=== PATIENT | male | born 2000 | race Caucasian/White ===

== ENCOUNTER 2018-04-11 19:59 | Inpatient (IN) ==
[2018-04-11] MEDS ORDERED: Acetaminophen 325 MG Tablet PO ONE (21:08)
[2018-04-11] MEDS ORDERED: Sod Chloride 0.9% Inj 1,000 ML IV.SIG ONE ×2 (21:08→22:18)
--- NOTE | 2018-04-11 21:21 | ED ---
HPI General Chief complaint: Fever Stated complaint: flu symp Time Seen by Provider: 04/11/18 20:29 Source: patient Limitations: no limitations History of Present Illness HPI narrative: The patient is a 17 year old male who presents to the [facility] emergency department with a history of reportedly not feeling well since 10 PM last night. He reports that it began with nausea, mild bitemporal headache, and a sore throat. He denies having any chest congestion or cough associated with this, however he has had mild head congestion. He reports that he took DayQuil last at 5 PM today. He denies having any known sick contacts. He reports having a subjective fever that began earlier today. The patient arrives with a temperature of 102. The patient denies having any vomiting or diarrhea. The patient does report having a history of spherocytosis status post cholecystectomy. The patient reports that he does take folic acid daily related to this. He reports that incidentally since last night he has had decreased urine output and darkening of his urine with a burning with urination. He denies having any testicle pain, swelling, or penile discharge. On review of systems otherwise, the patient denies having any, neck pain or stiffness, chest pain, shortness of breath, abdominal pain, or neurologic symptoms. Related Data Home Medications Medication Instructions Recorded Confirmed folic acid 1 mg PO DAILY 04/11/18 04/11/18 Allergies Allergy/AdvReac Type Severity Reaction Status Date / Time No Known Allergies Allergy Unverified 04/11/18 20:06 Review of Systems ROS: all other systems reviewed are negative (Except for that which was mentioned in the HPI.) [facility] Medical History Medical History Jaundice (Acute) Spherocytosis (Acute) Spleen enlarged (Acute) Surgical History Surgical History Hx of cholecystectomy (Acute) Hx of tonsillectomy (Acute) Social History Social History Substance History: No History of Abuse Second Hand Smoke Exposure: No Smoking Status: Never smoker How Often Do You Have a Drink Containing Alcohol: Monthly or less Immunization History Tetanus Immunization: <5 Years Hx Influenza Vaccine This Season: Unable to Assess Exam Const General: cooperative, no acute distress and well developed Nutritional Appearance: well nourished Orientation: alert, awake and oriented x3 [facility] Head: normocephalic and atraumatic Nose: no nasal discharge and no epistaxis Mouth: moist mucous membranes Throat: posterior oropharynx abnormal (Posterior oropharynx is erythematous without tonsillar hypertrophy. No visible exudates. Throat swab was done.) and uvula midline Eyes Sclera: normal sclerae Pupils: PERRL Neck Neck: no meningeal signs, trachea midline and no JVD Resp Effort & Inspection: no use of accessory muscles Auscultation: clear to auscultation bilaterally Cardio Rate: tachycardic (Sinus tachycardia in the low 100s, no pulse deficits to the extremities on simultaneous auscultation and palpation of his radial artery.) Rhythm: regular rhythm Heart Sounds: no gallops, no murmurs and no rubs GI Inspection: non-distended Palpation: soft, no hepatosplenomegaly and nontender Auscultation: normal bowel sounds Back/Spine/Pelvis Back: no CVA tenderness Skin General: dry skin (warm) Neuro General: alert, awake and oriented x3 Cranial Nerves: other (No facial asymmetry.) Speech: speech normal Motor: no movement abnormalities noted Extrem General: normal to inspection (2+ pulses in all 4 extremities. No calf tenderness on palpation.), no clubbing, no cyanosis and no edema Psych Mood: congruent mood Affect: normal affect Judgment: judgment good Course Reevaluation(s) Reevaluation #1: The patient on reevaluation was reportedly feeling improved after IV fluids and Tylenol administration. Consultations Consultation #1: The patient's case including history, pertinent physical examination findings, and laboratory studies were discussed with Dr. Holder. It was agreed that the patient would be admitted to the hospitalist service. Initial Documented Vital Signs Temperature 102.7 F H 04/11/18 20:06 Pulse Rate 100 H 04/11/18 20:06 Respiratory Rate 20 04/11/18 20:06 Blood Pressure 123/56 L 04/11/18 20:06 Pulse Oximetry 100 04/11/18 20:06 Last Documented Vital Signs Temperature 97.4 F L 04/14/18 04:00 Pulse Rate 78 04/14/18 04:00 Respiratory Rate 18 04/14/18 04:00 Blood Pressure 113/59 L 04/14/18 04:00 Pulse Oximetry 100 04/14/18 04:00 Medical Decision Making MDM Narrative Medical decision making narrative: During the course of the patient's emergency department visit, the patient's history, examination, and differential diagnosis were reviewed with the patient. The patient was placed on a gambling monitor with oximetry and frequent blood pressure monitoring. The patient had IV access obtained and blood work sent for analysis. Diagnostic evaluation was started regarding the patient's reported fever, nausea, bitemporal headache, sore throat. The patient was initially provided normal saline 1 L IV fluid bolus. The patient was given Tylenol for fever. The patient's temperature again went up and the patient was given ibuprofen 400 mg p.o. 1. The patient was given a second liter of normal saline at all he was being worked up. The patient's diagnostic evaluation is remarkable for a white count of 21, platelets 212, neutrophil predominance at 82.9, hemoglobin is 9.4. Had a further discussion with the patient and the patient reports that his hemoglobin is normally 12-13. He reports that this is consistent with a hemolytic event. He reports that he is normally admitted for these for monitoring of his CBC for the coming aplastic. The rest of his evaluation is consistent with a hemolytic event, chemistry is remarkable for a total bilirubin of 11.4, lipase is 53, GFR of 63, creatinine 1.44, BUN 25, AST is 321, ALT is 96, urinalysis shows moderate occult blood with 3 RBCs, many mucus, hazy clarity, otherwise unremarkable. A mono screen has been added to his workup. A chest x-ray shows no acute cardiopulmonary process. The patient will be admitted to the hospital for an exacerbation of his spherocytosis with hemolytic process associated with febrile illness. The patient's results were discussed with the patient, including the plan of care. I explained that further testing and/ or monitoring is indicated based on the patient's history, examination, and/ or laboratory findings. Therefore, I recommended admission for additional evaluation. The patient expressed understanding and was agreeable with this plan. The patient was admitted to the hospital in guarded condition and sent to a bed under the care of [facility] service. Medical Screen Exam Complete: Yes Emergency Medical Condition: Yes Differential Diagnosis Differential Diagnosis: Strep pharyngitis, versus viral syndrome, versus pneumonia Lab Data Result diagrams: 04/14/18 03:17 04/14/18 03:17 Lab Results 04/11/18 04/11/18 04/11/18 Range/Units 21:15 21:15 21:15 WBC 21.0 H (4.0-11.0) th/mm3 Corrected WBC RBC 2.93 L (4.50-5.90) mil/mm3 Hgb 9.4 L (13.0-17.0) gm/dL Hct 26.3 L (39.0-51.0) % MCV 89.9 (80.0-100.0) fL MCH 32.0 (27.0-34.0) pg MCHC 35.6 (32.0-36.0) % RDW 21.2 H (11.6-17.2) % Plt Count 212 (150-450) th/mm3 MPV 8.3 (7.0-11.0) fL Prelim Diff (Auto) Slide review pending Neut % (Auto) 82.9 H (16.0-70.0) % Lymph % (Auto) 5.6 L (9.0-44.0) % [place] % (Auto) 11.2 H (0.0-8.0) % Eos % (Auto) 0.1 (0.0-4.0) % Baso % (Auto) 0.2 (0.0-2.0) % Neut # (Auto) 17.4 H (1.8-7.7) th/mm3 Lymph # (Auto) 1.2 (1.0-4.8) th/mm3 [place] # (Auto) 2.4 H (0.0-0.9) th/mm3 Eos # (Auto) 0.0 (0.0-0.4) th/mm3 Baso # (Auto) 0.0 (0.0-0.2) th/mm3 WBC Differential . Diff Scan Auto diff confirmed Differential Comment . Retic Count (0.4-3.0) % Absolute Retic (20.0-150.0) mil/L Haptoglobin (30-200) mg/dL Hematology Comments PT 12.6 H (9.8-11.6) sec INR 1.2 Ratio APTT 27.9 (24.3-30.1) sec Sodium 140 (136-145) meq/L Potassium 3.5 (3.5-5.1) meq/L Chloride 103 (98-107) meq/L Carbon Dioxide 23.5 (21.0-32.0) meq/L Anion Gap 14 (5-15) meq/L BUN 25 H (7-18) mg/dL Creatinine 1.44 H (0.60-1.30) mg/dL Estimated GFR 63 L (>89) mL/min Random Glucose 101 (74-106) mg/dL Lactic Acid (0.4-2.0) mmol/L Calcium 8.3 L (8.5-10.1) mg/dL Magnesium 1.9 (1.5-2.5) mg/dL Iron (65-175) mcg/dL TIBC (250-450) mcg/dL % Saturation (20-50) % Ferritin (26-388) ng/mL Total Bilirubin 11.4 H (0.2-1.0) mg/dL Direct Bilirubin (0.0-0.2) mg/dL Indirect Bilirubin (0.0-0.8) mg/dL AST 321 H (15-39) U/L ALT 96 H (9-52) U/L Alkaline Phosphatase 69 (45-117) U/L Lactate Dehydrogenase (87-241) U/L Total Creatine Kinase 7593 H (39-308) U/L CK-MB (CK-2) Less than 1.0 (0.5-3.6) ng/mL CK-MB (CK-2) % 0.0 (0.0-4.0) % Total Protein 7.2 (6.4-8.2) g/dL Albumin 4.3 (3.4-5.0) g/dL Lipase 53 L (73-393) U/L Vitamin B12 (193-986) pg/mL Urine Color (Yellw/Straw) Urine Clarity (Clear) Urine pH (5.0-8.5) Ur Specific [place] (1.002-1.035) Urine Protein (Neg-Trace) mg/dL Urine Glucose (UA) (Negative) mg/dL Urine Ketones (Negative) mg/dL Urine Occult Blood (Negative) Urine Nitrate (Negative) Urine Bilirubin (Negative) Urine Urobilinogen (Less than 2) mg/dL Ur Leukocyte Esterase (Negative) Urine RBC (0-3) /hpf Urine WBC (0-5) /hpf Hyaline Casts (0-3) /lpf Urine Mucus (Occasional) /lpf Micro UA Comment Ur Microscopic Review Urine Culture Comments Vancomycin Trough (5.0-10.0) mcg/mL Monoscreen (Neg) Direct Antiglob Test (Negative) 04/11/18 04/11/18 04/11/18 Range/Units 21:15 21:15 22:30 WBC (4.0-11.0) th/mm3 Corrected WBC RBC (4.50-5.90) mil/mm3 Hgb (13.0-17.0) gm/dL Hct (39.0-51.0) % MCV (80.0-100.0) fL MCH (27.0-34.0) pg MCHC (32.0-36.0) % RDW (11.6-17.2) % Plt Count (150-450) th/mm3 MPV (7.0-11.0) fL Prelim Diff (Auto) Neut % (Auto) (16.0-70.0) % Lymph % (Auto) (9.0-44.0) % [place] % (Auto) (0.0-8.0) % Eos % (Auto) (0.0-4.0) % Baso % (Auto) (0.0-2.0) % Neut # (Auto) (1.8-7.7) th/mm3 Lymph # (Auto) (1.0-4.8) th/mm3 [place] # (Auto) (0.0-0.9) th/mm3 Eos # (Auto) (0.0-0.4) th/mm3 Baso # (Auto) (0.0-0.2) th/mm3 WBC Differential Diff Scan Differential Comment Retic Count (0.4-3.0) % Absolute Retic (20.0-150.0) mil/L Haptoglobin (30-200) mg/dL Hematology Comments PT (9.8-11.6) sec INR Ratio APTT (24.3-30.1) sec Sodium (136-145) meq/L Potassium (3.5-5.1) meq/L Chloride (98-107) meq/L Carbon Dioxide (21.0-32.0) meq/L Anion Gap (5-15) meq/L BUN (7-18) mg/dL Creatinine (0.60-1.30) mg/dL Estimated GFR (>89) mL/min Random Glucose (74-106) mg/dL Lactic Acid 1.6 (0.4-2.0) mmol/L Calcium (8.5-10.1) mg/dL Magnesium (1.5-2.5) mg/dL Iron (65-175) mcg/dL TIBC (250-450) mcg/dL % Saturation (20-50) % Ferritin (26-388) ng/mL Total Bilirubin (0.2-1.0) mg/dL Direct Bilirubin (0.0-0.2) mg/dL Indirect Bilirubin (0.0-0.8) mg/dL AST (15-39) U/L ALT (9-52) U/L Alkaline Phosphatase (45-117) U/L Lactate Dehydrogenase (87-241) U/L Total Creatine Kinase Cancelled (39-308) U/L CK-MB (CK-2) (0.5-3.6) ng/mL CK-MB (CK-2) % (0.0-4.0) % Total Protein (6.4-8.2) g/dL Albumin (3.4-5.0) g/dL Lipase (73-393) U/L Vitamin B12 (193-986) pg/mL Urine Color Edna (Yellw/Straw) Urine Clarity Hazy H (Clear) Urine pH 5.0 (5.0-8.5) Ur Specific [place] 1.026 (1.002-1.035) Urine Protein Negative (Neg-Trace) mg/dL Urine Glucose (UA) Negative (Negative) mg/dL Urine Ketones Negative (Negative) mg/dL Urine Occult Blood Moderate H (Negative) Urine Nitrate Negative (Negative) Urine Bilirubin Negative (Negative) Urine Urobilinogen 4 or greater (Less than 2) mg/dL Ur Leukocyte Esterase Negative (Negative) Urine RBC 3 (0-3) /hpf Urine WBC 5 (0-5) /hpf Hyaline Casts 44 (0-3) /lpf Urine Mucus Many H (Occasional) /lpf Micro UA Comment Culture not ind Ur Microscopic Review Not Reportable Urine Culture Comments Culture not ind Vancomycin Trough (5.0-10.0) mcg/mL Monoscreen (Neg) Direct Antiglob Test (Negative) 04/11/18 04/12/18 04/12/18 Range/Units 23:36 10:12 11:12 WBC 10.3 D (4.0-11.0) th/mm3 Corrected WBC RBC 2.30 L (4.50-5.90) mil/mm3 Hgb 7.4 L D (13.0-17.0) gm/dL Hct 20.1 L* (39.0-51.0) % MCV 87.5 (80.0-100.0) fL MCH 32.1 (27.0-34.0) pg MCHC 36.7 H (32.0-36.0) % RDW 20.8 H (11.6-17.2) % Plt Count 174 (150-450) th/mm3 MPV 7.2 (7.0-11.0) fL Prelim Diff (Auto) Neut % (Auto) (16.0-70.0) % Lymph % (Auto) (9.0-44.0) % [place] % (Auto) (0.0-8.0) % Eos % (Auto) (0.0-4.0) % Baso % (Auto) (0.0-2.0) % Neut # (Auto) (1.8-7.7) th/mm3 Lymph # (Auto) (1.0-4.8) th/mm3 [place] # (Auto) (0.0-0.9) th/mm3 Eos # (Auto) (0.0-0.4) th/mm3 Baso # (Auto) (0.0-0.2) th/mm3 WBC Differential Diff Scan Differential Comment Retic Count (0.4-3.0) % Absolute Retic (20.0-150.0) mil/L Haptoglobin (30-200) mg/dL Hematology Comments PT (9.8-11.6) sec INR Ratio APTT (24.3-30.1) sec Sodium (136-145) meq/L Potassium (3.5-5.1) meq/L Chloride (98-107) meq/L Carbon Dioxide (21.0-32.0) meq/L Anion Gap (5-15) meq/L BUN (7-18) mg/dL Creatinine (0.60-1.30) mg/dL Estimated GFR (>89) mL/min Random Glucose (74-106) mg/dL Lactic Acid (0.4-2.0) mmol/L Calcium (8.5-10.1) mg/dL Magnesium (1.5-2.5) mg/dL Iron (65-175) mcg/dL TIBC (250-450) mcg/dL % Saturation (20-50) % Ferritin (26-388) ng/mL Total Bilirubin (0.2-1.0) mg/dL Direct Bilirubin (0.0-0.2) mg/dL Indirect Bilirubin (0.0-0.8) mg/dL AST (15-39) U/L ALT (9-52) U/L Alkaline Phosphatase (45-117) U/L Lactate Dehydrogenase (87-241) U/L Total Creatine Kinase 33589 H (39-308) U/L CK-MB (CK-2) 5.4 H (0.5-3.6) ng/mL CK-MB (CK-2) % 0.1 (0.0-4.0) % Total Protein (6.4-8.2) g/dL Albumin (3.4-5.0) g/dL Lipase (73-393) U/L Vitamin B12 (193-986) pg/mL Urine Color (Yellw/Straw) Urine Clarity (Clear) Urine pH (5.0-8.5) Ur Specific [place] (1.002-1.035) Urine Protein (Neg-Trace) mg/dL Urine Glucose (UA) (Negative) mg/dL Urine Ketones (Negative) mg/dL Urine Occult Blood (Negative) Urine Nitrate (Negative) Urine Bilirubin (Negative) Urine Urobilinogen (Less than 2) mg/dL Ur Leukocyte Esterase (Negative) Urine RBC (0-3) /hpf Urine WBC (0-5) /hpf Hyaline Casts (0-3) /lpf Urine Mucus (Occasional) /lpf Micro UA Comment Ur Microscopic Review Urine Culture Comments Vancomycin Trough (5.0-10.0) mcg/mL Monoscreen Neg (Neg) Direct Antiglob Test (Negative) 04/12/18 04/13/18 04/13/18 Range/Units 11:12 00:45 04:37 WBC Cancelled (4.0-11.0) th/mm3 Corrected WBC Cancelled RBC Cancelled (4.50-5.90) mil/mm3 Hgb Cancelled (13.0-17.0) gm/dL Hct Cancelled (39.0-51.0) % MCV Cancelled (80.0-100.0) fL MCH Cancelled (27.0-34.0) pg MCHC Cancelled (32.0-36.0) % RDW Cancelled (11.6-17.2) % Plt Count Cancelled (150-450) th/mm3 MPV Cancelled (7.0-11.0) fL Prelim Diff (Auto) Neut % (Auto) (16.0-70.0) % Lymph % (Auto) (9.0-44.0) % [place] % (Auto) (0.0-8.0) % Eos % (Auto) (0.0-4.0) % Baso % (Auto) (0.0-2.0) % Neut # (Auto) (1.8-7.7) th/mm3 Lymph # (Auto) (1.0-4.8) th/mm3 [place] # (Auto) (0.0-0.9) th/mm3 Eos # (Auto) (0.0-0.4) th/mm3 Baso # (Auto) (0.0-0.2) th/mm3 WBC Differential Diff Scan Differential Comment Retic Count 16.1 H (0.4-3.0) % Absolute Retic 368.8 H (20.0-150.0) mil/L Haptoglobin (30-200) mg/dL Hematology Comments Cancelled PT (9.8-11.6) sec INR Ratio APTT (24.3-30.1) sec Sodium (136-145) meq/L Potassium (3.5-5.1) meq/L Chloride (98-107) meq/L Carbon Dioxide (21.0-32.0) meq/L Anion Gap (5-15) meq/L BUN (7-18) mg/dL Creatinine (0.60-1.30) mg/dL Estimated GFR (>89) mL/min Random Glucose (74-106) mg/dL Lactic Acid (0.4-2.0) mmol/L Calcium (8.5-10.1) mg/dL Magnesium (1.5-2.5) mg/dL Iron (65-175) mcg/dL TIBC (250-450) mcg/dL % Saturation (20-50) % Ferritin (26-388) ng/mL Total Bilirubin (0.2-1.0) mg/dL Direct Bilirubin (0.0-0.2) mg/dL Indirect Bilirubin (0.0-0.8) mg/dL AST (15-39) U/L ALT (9-52) U/L Alkaline Phosphatase (45-117) U/L Lactate Dehydrogenase (87-241) U/L Total Creatine Kinase (39-308) U/L CK-MB (CK-2) (0.5-3.6) ng/mL CK-MB (CK-2) % (0.0-4.0) % Total Protein (6.4-8.2) g/dL Albumin (3.4-5.0) g/dL Lipase (73-393) U/L Vitamin B12 (193-986) pg/mL Urine Color (Yellw/Straw) Urine Clarity (Clear) Urine pH (5.0-8.5) Ur Specific [place] (1.002-1.035) Urine Protein (Neg-Trace) mg/dL Urine Glucose (UA) (Negative) mg/dL Urine Ketones (Negative) mg/dL Urine Occult Blood (Negative) Urine Nitrate (Negative) Urine Bilirubin (Negative) Urine Urobilinogen (Less than 2) mg/dL Ur Leukocyte Esterase (Negative) Urine RBC (0-3) /hpf Urine WBC (0-5) /hpf Hyaline Casts (0-3) /lpf Urine Mucus (Occasional) /lpf Micro UA Comment Ur Microscopic Review Urine Culture Comments Vancomycin Trough 2.6 L (5.0-10.0) mcg/mL Monoscreen (Neg) Direct Antiglob Test (Negative) 04/13/18 04/13/18 04/13/18 Range/Units 04:37 04:37 04:37 WBC 7.2 (4.0-11.0) th/mm3 Corrected WBC RBC 2.34 L (4.50-5.90) mil/mm3 Hgb 7.4 L (13.0-17.0) gm/dL Hct 20.5 L* (39.0-51.0) % MCV 87.7 (80.0-100.0) fL MCH 31.5 (27.0-34.0) pg MCHC 35.9 (32.0-36.0) % RDW 21.3 H (11.6-17.2) % Plt Count 174 (150-450) th/mm3 MPV 7.6 (7.0-11.0) fL Prelim Diff (Auto) Adjunct Instructor Chemistry Neut % (Auto) 65.5 (16.0-70.0) % Lymph % (Auto) 22.9 (9.0-44.0) % [place] % (Auto) 10.7 H (0.0-8.0) % Eos % (Auto) 0.4 (0.0-4.0) % Baso % (Auto) 0.5 (0.0-2.0) % Neut # (Auto) 4.7 (1.8-7.7) th/mm3 Lymph # (Auto) 1.6 (1.0-4.8) th/mm3 [place] # (Auto) 0.8 (0.0-0.9) th/mm3 Eos # (Auto) 0.0 (0.0-0.4) th/mm3 Baso # (Auto) 0.0 (0.0-0.2) th/mm3 WBC Differential . Diff Scan Differential Comment Auto diff final Retic Count (0.4-3.0) % Absolute Retic (20.0-150.0) mil/L Haptoglobin Less than 200 (30-200) mg/dL Hematology Comments PT (9.8-11.6) sec INR Ratio APTT (24.3-30.1) sec Sodium 144 (136-145) meq/L Potassium 3.4 L (3.5-5.1) meq/L Chloride 111 H D (98-107) meq/L Carbon Dioxide 22.6 (21.0-32.0) meq/L Anion Gap 10 (5-15) meq/L BUN 8 (7-18) mg/dL Creatinine 0.84 (0.60-1.30) mg/dL Estimated GFR Greater than 89 (>89) mL/min Random Glucose 84 (74-106) mg/dL Lactic Acid (0.4-2.0) mmol/L Calcium 7.7 L (8.5-10.1) mg/dL Magnesium (1.5-2.5) mg/dL Iron 51 L (65-175) mcg/dL TIBC 204 L (250-450) mcg/dL % Saturation 25.0 (20-50) % Ferritin 598 H (26-388) ng/mL Total Bilirubin 4.4 H 4.4 H (0.2-1.0) mg/dL Direct Bilirubin 0.6 H (0.0-0.2) mg/dL Indirect Bilirubin 3.8 H (0.0-0.8) mg/dL AST 293 H (15-39) U/L ALT 96 H (9-52) U/L Alkaline Phosphatase 44 L (45-117) U/L Lactate Dehydrogenase 318 H (87-241) U/L Total Creatine Kinase 6479 H (39-308) U/L CK-MB (CK-2) Less than 1.0 (0.5-3.6) ng/mL CK-MB (CK-2) % 0.0 (0.0-4.0) % Total Protein 6.0 L D (6.4-8.2) g/dL Albumin 3.2 L D (3.4-5.0) g/dL Lipase (73-393) U/L Vitamin B12 335 (193-986) pg/mL Urine Color (Yellw/Straw) Urine Clarity (Clear) Urine pH (5.0-8.5) Ur Specific [place] (1.002-1.035) Urine Protein (Neg-Trace) mg/dL Urine Glucose (UA) (Negative) mg/dL Urine Ketones (Negative) mg/dL Urine Occult Blood (Negative) Urine Nitrate (Negative) Urine Bilirubin (Negative) Urine Urobilinogen (Less than 2) mg/dL Ur Leukocyte Esterase (Negative) Urine RBC (0-3) /hpf Urine WBC (0-5) /hpf Hyaline Casts (0-3) /lpf Urine Mucus (Occasional) /lpf Micro UA Comment Ur Microscopic Review Urine Culture Comments Vancomycin Trough (5.0-10.0) mcg/mL Monoscreen (Neg) Direct Antiglob Test (Negative) 04/13/18 04/14/18 04/14/18 Range/Units 04:37 03:17 03:17 WBC 6.6 (4.0-11.0) th/mm3 Corrected WBC RBC 2.50 L (4.50-5.90) mil/mm3 Hgb 7.8 L (13.0-17.0) gm/dL Hct 22.1 L (39.0-51.0) % MCV 88.4 (80.0-100.0) fL MCH 31.4 (27.0-34.0) pg MCHC 35.5 (32.0-36.0) % RDW 20.3 H (11.6-17.2) % Plt Count 183 (150-450) th/mm3 MPV 8.0 (7.0-11.0) fL Prelim Diff (Auto) Neut % (Auto) 48.0 (16.0-70.0) % Lymph % (Auto) 42.3 (9.0-44.0) % [place] % (Auto) 5.9 (0.0-8.0) % Eos % (Auto) 3.2 (0.0-4.0) % Baso % (Auto) 0.6 (0.0-2.0) % Neut # (Auto) 3.2 (1.8-7.7) th/mm3 Lymph # (Auto) 2.8 (1.0-4.8) th/mm3 [place] # (Auto) 0.4 (0.0-0.9) th/mm3 Eos # (Auto) 0.2 (0.0-0.4) th/mm3 Baso # (Auto) 0.0 (0.0-0.2) th/mm3 WBC Differential . Diff Scan Differential Comment Auto diff final Retic Count (0.4-3.0) % Absolute Retic (20.0-150.0) mil/L Haptoglobin (30-200) mg/dL Hematology Comments PT (9.8-11.6) sec INR Ratio APTT (24.3-30.1) sec Sodium 144 (136-145) meq/L Potassium 3.4 L (3.5-5.1) meq/L Chloride 109 H (98-107) meq/L Carbon Dioxide 23.8 (21.0-32.0) meq/L Anion Gap 11 (5-15) meq/L BUN 7 (7-18) mg/dL Creatinine 0.90 (0.60-1.30) mg/dL Estimated GFR Greater than 89 (>89) mL/min Random Glucose 72 L (74-106) mg/dL Lactic Acid (0.4-2.0) mmol/L Calcium 8.1 L (8.5-10.1) mg/dL Magnesium 2.1 (1.5-2.5) mg/dL Iron (65-175) mcg/dL TIBC (250-450) mcg/dL % Saturation (20-50) % Ferritin (26-388) ng/mL Total Bilirubin 2.5 H (0.2-1.0) mg/dL Direct Bilirubin 0.4 H (0.0-0.2) mg/dL Indirect Bilirubin 2.1 H (0.0-0.8) mg/dL AST 238 H (15-39) U/L ALT 101 H (9-52) U/L Alkaline Phosphatase 42 L (45-117) U/L Lactate Dehydrogenase (87-241) U/L Total Creatine Kinase 4330 H (39-308) U/L CK-MB (CK-2) Less than 1.0 (0.5-3.6) ng/mL CK-MB (CK-2) % 0.0 (0.0-4.0) % Total Protein 6.5 (6.4-8.2) g/dL Albumin 3.4 (3.4-5.0) g/dL Lipase (73-393) U/L Vitamin B12 (193-986) pg/mL Urine Color (Yellw/Straw) Urine Clarity (Clear) Urine pH (5.0-8.5) Ur Specific [place] (1.002-1.035) Urine Protein (Neg-Trace) mg/dL Urine Glucose (UA) (Negative) mg/dL Urine Ketones (Negative) mg/dL Urine Occult Blood (Negative) Urine Nitrate (Negative) Urine Bilirubin (Negative) Urine Urobilinogen (Less than 2) mg/dL Ur Leukocyte Esterase (Negative) Urine RBC (0-3) /hpf Urine WBC (0-5) /hpf Hyaline Casts (0-3) /lpf Urine Mucus (Occasional) /lpf Micro UA Comment Ur Microscopic Review Urine Culture Comments Vancomycin Trough (5.0-10.0) mcg/mL Monoscreen (Neg) Direct Antiglob Test Negative (Negative) Imaging Data Radiologist's impression: Chest X-Ray 04/11/18 21:08 CONCLUSION: No evidence of acute cardiopulmonary process. ECG Data Attestation: I personally reviewed and interpreted this ECG as follows: Interpretation: The patient had an EKG done on arrival that shows a sinus tachycardia rate of 120, QRS duration is 106 ms, QTC 494 ms with nonspecific T- wave abnormalities including T waves that are inverted in lead III, aVF, V1. No acute ST segment elevation. Discharge Plan Discharge Disposition Patient Disposition: 30 Still Patient Discharge Details Diagnosis: Hemolytic anemia Physicians Team ED Provider: Erica Germain Primary Care Provider: Primary Care Emily Ortiz Attending Provider: John Saldana Other Providers: Tony Reyes Status ED Status: Left Department Discharge Information Discharge Date/Time: 04/12/18 01:36
[2018-04-11 22:00] LABS: Baso % (Auto) 0.2 % (0.0-2.0); Eos % (Auto) 0.1 % (0.0-4.0); Hematocrit 26.3 % (39.0-51.0); Hemoglobin 9.4 gm/dL (13.0-17.0); Lymph # (Auto) 1.2 th/mm3 (1.0-4.8); Lymph % (Auto) 5.6 % (9.0-44.0); Mean Corpuscular HGB Conc 35.6 % (32.0-36.0); Mean Corpuscular Volume 89.9 fL (80.0-100.0); Mean Platelet Volume 8.3 fL (7.0-11.0); Mono # (Auto) 2.4 th/mm3 (0.0-0.9); Mono % (Auto) 11.2 % (0.0-8.0); Neut # (Auto) 17.4 th/mm3 (1.8-7.7); Neut % (Auto) 82.9 % (16.0-70.0); Platelet Count 212 th/mm3 (150-450); Red Blood Count 2.93 mil/mm3 (4.50-5.90); Red Cell Distribution Width 21.2 % (11.6-17.2)
--- NOTE | 2018-04-11 22:00 | XR ---
EXAM DATE: 04/11/2018 9:55 PM EDT AGE/SEX: 17 years / Male INDICATIONS: Fever. Possible flu. CLINICAL DATA: This is the patient's initial encounter. Patient reports that signs and symptoms have been present for 2 days and indicates a pain score of 0/10. MEDICAL/SURGICAL HISTORY: None. None. COMPARISON: No prior exams available for comparison. FINDINGS: A single AP view of the chest demonstrates the lungs to be symmetrically aerated without evidence of mass, infiltrate or effusion. The cardiomediastinal contours are unremarkable. Osseous structures a re intact. CONCLUSION: No evidence of acute cardiopulmonary process. Electronically signed by: Jose Candelaria MD 04/11/2018 9:59 PM EDT
[2018-04-11 22:13] LABS: Activated Partial Thrombo Time 27.9 sec (24.3-30.1); INR 1.2 Ratio; Prothrombin Time 12.6 sec (9.8-11.6)
[2018-04-11] MEDS ORDERED: Ibuprofen 400 MG Tablet PO ONE (22:17)
[2018-04-11 22:24] LABS: Alanine Aminotransferase 96 U/L (9-52); Albumin 4.3 g/dL (3.4-5.0); Anion Gap 14 meq/L (5-15); Aspartate Aminotransferase 321 U/L (15-39); Blood Urea Nitrogen 25 mg/dL (7-18); Calcium 8.3 mg/dL (8.5-10.1); Carbon Dioxide 23.5 meq/L (21.0-32.0); Chloride 103 meq/L (98-107); Glomerular Filtration Rate 63 mL/min (>89); Glucose,Random 101 mg/dL (74-106); Lipase 53 U/L (73-393); Magnesium 1.9 mg/dL (1.5-2.5); Potassium 3.5 meq/L (3.5-5.1); Sodium 140 meq/L (136-145)
[2018-04-11 22:27] LABS: Alkaline Phosphatase 69 U/L (45-117); Total Protein 7.2 g/dL (6.4-8.2)
[2018-04-11 23:24] LABS: Bilirubin,Urine Negative (Negative); Clarity,Urine Hazy (Clear); Color,Urine Amber (Yellw/Straw); Glucose,Urine (UA) Negative (Negative); Hyaline Casts,Urine 44 /lpf (0-3); Leukocyte Esterase,Urine Negative (Negative); Mucus,Urine Many /lpf (Occasional); Nitrite,Urine Negative (Negative); Specific Gravity,Urine 1.026 (1.002-1.035); Urobilinogen,Urine 4 or Greater mg/dL (Less than 2)
[2018-04-12] MEDS ORDERED: Vancomycin Inj 1 GM/200 ML PIGGYBACK IV.SIG ONE
[2018-04-12] MEDS ORDERED: Piperacil/Tazo 3.375 GM Premix 50 ML IV.SIG ONE
[2018-04-12] MEDS ORDERED: Vancomycin Consult Pharmacy OTHER PRN (00:02)
[2018-04-12] MEDS ORDERED: Bisacodyl 10 MG Supp RECTAL PRN (00:02)
[2018-04-12 00:16] LABS: Mono Screen Neg (Neg)
[2018-04-12 00:26] LABS: Creatine Kinase 7593 U/L (39-308)
[2018-04-12] MEDS ORDERED: Vancomycin Inj 1,000 MG in Sodium Chlor 0.9% Inj 250 ML IV.SIG ONE (00:30)
[2018-04-12] MEDS: Sod Chloride 0.9% Inj 1,000 ML IV.CONT SCH ×4 (01:35→21:38)
[2018-04-12] MEDS: Acetaminophen 325 MG Tablet PO PRN ×2 (01:36→17:19)
--- NOTE | 2018-04-12 01:45 | P.HPIM ---
History of Present Illness Primary Care Physician: No Primary Care Physician History of Present Illness: This is a 17-year-old male with a PMH of Hereditary Spherocytosis who presented to the ER w/ myalgias, sore throat and headache x1 day. Notes subjective fever/ chills. Has been taking OTC medications w/ minimal relief. On arrival, BP 121/ 55, HR 115, O2 sat 98% on RA, Temp 101.3. WBC 21. INR 1.2. Creatinine 1.44. CPK 7593. Hemoglobin 9.3, reports baseline hemoglobin 11-12. U/a negative. [place] negative. CXR no acute findings. S/p Vanc/Zosyn in ER. - Diagnosis (1) Hereditary spherocytosis (2) KAREN (acute kidney injury) (3) Sepsis (4) Rhabdomyolysis Inpatient Certification: I certify that the inpatient services were ordered in accordance with Medicare regulations governing the order. This includes certification that hospital inpatient services are reasonable and necessary and in the case of services not specified as inpatient-only under 42 CFR 419.22(n), that they are appropriately provided as inpatient services in accordance to with the 2-midnight benchmark under 43 CFR 412.3(e) Estimated Total Length of Stay (Days): 2 Plans for Post Hospital Care: Not yet determined Review of Systems PAST FAMILY HISTORY: Reviewed. No h/o DM or CAD All other systems reviewed negative except as stated in HPI PMFSH - History History Provided By: Patient - Medical History Medical History: Medical History (Last Reviewed 04/11/18 @ 21:45 by Erica Germain MD) Jaundice Spherocytosis Spleen enlarged - Surgical History Surgical History: Surgical History (Last Reviewed 04/11/18 @ 21:45 by Erica Germain MD) Hx of cholecystectomy Hx of tonsillectomy - Tobacco History Second Hand Smoke Exposure: No Smoking Status: Never smoker - Alcohol History How Often Do You Have a Drink Containing Alcohol: Monthly or less - Substance Use History Substance History: No History of Abuse - Immunization History Tetanus Immunization: <5 Years Hx Influenza Vaccine This Season: Unable to Assess Medications and Allergies Active Medications: Active Medications Acetaminophen (Tylenol) 650 mg PO Q4H PRN PRN Reason: Temp > 100.4 Last Admin: 04/12/18 01:36 Dose: 650 mg Al Hydroxide/Mg Hydroxide (Milk Of Magnesia Liq) 30 ml PO Q12H PRN PRN Reason: Mild Constipation Bisacodyl (Dulcolax Supp) 10 mg RECTAL DAILY PRN PRN Reason: SEVERE CONSITIPATION Sodium Chloride (Ns Inj) 1,000 mls @ 100 mls/hr IV.CONT .Q10H [facility] Last Admin: 04/12/18 01:35 Dose: 100 mls/hr Piperacillin/Tazobactam/Dextrose (Zosyn 4.5 Gm Premix) 4.5 gm in 100 mls @ 200 mls/hr IV.SIG Q6H [facility] Lactulose (Lactulose Liq) 30 ml PO DAILY PRN PRN Reason: SEVERE CONSITIPATION Ondansetron HCl (Zofran Inj) 4 mg IV.PUSH Q6H PRN PRN Reason: NAUSEA OR VOMITING Pharmacy Profile Note (Vancomycin Consult Pharmacy) 1 each OTHER UNSCH PRN PRN Reason: Pharmacy to dose Senna/Docusate Sodium (Noni-Colace) 1 tab PO BID [facility] Sennosides (Senokot) 17.2 mg PO Q12H PRN PRN Reason: Moderate Constipation Allergies Allergy/AdvReac Type Severity Reaction Status Date / Time No Known Allergies Allergy Unverified 04/11/18 20:06 Home Medications Medication Instructions Recorded Confirmed Type folic acid 1 mg PO DAILY 04/11/18 04/11/18 History Exam Vital signs: Vital Signs 04/11/18 20:06 04/11/18 20:09 04/11/18 22:04 Temperature 102.7 F H 100.5 F H Pulse Rate 100 H 113 H Respiratory Rate 20 18 Blood Pressure 123/56 L 114/49 L Pulse Oximetry 100 100 99 04/11/18 22:15 04/11/18 22:42 04/11/18 23:31 Temperature 101.3 F H 98.3 F Pulse Rate 115 H 115 H 114 H Respiratory Rate 20 16 18 Blood Pressure 121/55 L Pulse Oximetry 98 98 98 04/12/18 00:02 Temperature Pulse Rate 108 H Respiratory Rate Blood Pressure Pulse Oximetry Intake & Output 04/11/18 04/11/18 04/12/18 06:59 18:59 06:59 Intake Total 1000 / 1000 Balance 1000 / 1000 Weight 78.925 kg Intake: IV 1000 / 1000 NS Inj 1,000 ML @ Wide Open IV. 1000 / 1000 SIG BOLUS ONE Rx#:[id number] Narrative: PE: GENERAL: Very pleasant young male in no acute distress. HEENT: PERRLA, EOMI. No scleral icterus or conjunctival pallor. No lid lag or facial droop. CARDIOVASCULAR: Regular rate and rhythm. No obvious murmurs to auscultation. No chest tenderness to palpation. RESPIRATORY: No obvious rhonchi or wheezing. Clear to auscultation. Breath sounds equal bilaterally. GASTROINTESTINAL: Abdomen soft, non-tender, nondistended. BS normal. MUSCULOSKELETAL: Extremities without clubbing, cyanosis, or edema. No obvious deformities. NEUROLOGICAL: Awake, alert and oriented x4. No focal neurologic deficits. Moving both upper and lower extremities spontaneously. Results - Labs CBC & Chem 7: 04/11/18 21:15 04/11/18 21:15 Labs: Short CBC 04/11/18 Range/Units 21:15 WBC 21.0 H (4.0-11.0) th/mm3 Hgb 9.4 L (13.0-17.0) gm/dL Hct 26.3 L (39.0-51.0) % Plt Count 212 (150-450) th/mm3 BMP 04/11/18 21:15 Sodium 140 Potassium 3.5 Chloride 103 Carbon Dioxide 23.5 BUN 25 H Creatinine 1.44 H Calcium 8.3 L Cardiac Enzymes 04/11/18 04/11/18 Range/Units 21:15 21:15 Total Creatine Kinase 7593 H Cancelled (39-308) U/L CK-MB (CK-2) Less than 1.0 (0.5-3.6) ng/mL Liver Function 04/11/18 Range/Units 21:15 Total Bilirubin 11.4 H (0.2-1.0) mg/dL AST 321 H (15-39) U/L ALT 96 H (9-52) U/L Alkaline Phosphatase 69 (45-117) U/L Albumin 4.3 (3.4-5.0) g/dL Urine 04/11/18 Range/Units 22:30 Urine Color Edna (Yellw/Straw) Urine Clarity Hazy H (Clear) Urine pH 5.0 (5.0-8.5) Ur Specific [place] 1.026 (1.002-1.035) Urine Protein Negative (Neg-Trace) mg/dL Urine Glucose (UA) Negative (Negative) mg/dL - Imaging Impressions Chest X-Ray 04/11/18 21:08 CONCLUSION: No evidence of acute cardiopulmonary process. Caprini VTE Risk Assessment Caprini VTE Risk Assessment: No/Low Risk (score <= 1) Caprini Risk Assessment Model: Point Value = 1 Point Value = 2 Point Value = 3 Point Value = 5 Age 41-60 Minor surgery BMI > 25 kg/m2 Swollen legs Varicose veins or History of unexplained or recurrent spontaneous Oral contraceptives or hormone replacement Sepsis (< 1 month) Serious lung disease, including pneumonia (< 1 month) Abnormal pulmonary function Acute myocardial infarction Congestive heart failure (< 1 month) History of inflammatory bowel disease Medical patient at bed rest Age 61-74 Arthroscopic surgery Major open surgery (> 45 min) Laparoscopic surgery (> 45 min) Malignancy Confined to bed (> 72 hours) Immobilizing plaster cast Central venous access Age >= 75 History of VTE Family history of VTE Factor V Leiden Prothrombin [id number] Lupus anticoagulant Anticardiolipin antibodies Elevated serum homocysteine Heparin-induced thrombocytopenia Other congenital or acquired thrombophilia Stroke (< 1 month) Elective arthroplasty Hip, pelvis, or leg fracture Acute spinal cord injury (< 1 month) Prophylaxis Regimen: Total Risk Factor Score Risk Level Prophylaxis Regimen 0-1 Low Early ambulation 2 Moderate Order ONE of the following: *Sequential Compression Device (SCD) *Heparin 5000 units SQ BID 3-4 Higher Order ONE of the following medications: *Heparin 5000 units SQ TID *Enoxaparin/Lovenox 40 mg SQ daily (WT < 150 kg, CrCl > 30 mL/min) *Enoxaparin/Lovenox 30 mg SQ daily (WT < 150 kg, CrCl > 10-29 mL/min) *Enoxaparin/Lovenox 30 mg SQ BID (WT < 150 kg, CrCl > 30 mL/min) AND/OR *Sequential Compression Device (SCD) 5 or more Highest Order ONE of the following medications: *Heparin 5000 units SQ TID (Preferred with Epidurals) *Enoxaparin/Lovenox 40 mg SQ daily (WT < 150 kg, CrCl > 30 mL/min) *Enoxaparin/Lovenox 30 mg SQ daily (WT < 150 kg, CrCl > 10-29 mL/min) *Enoxaparin/Lovenox 30 mg SQ BID (WT < 150 kg, CrCl > 30 mL/min) AND *Sequential Compression Device (SCD) Assessment and Plan - Assessment (1) Hereditary spherocytosis Code(s): D58.0 - Hereditary spherocytosis Status: Acute (2) KAREN (acute kidney injury) Code(s): N17.9 - Acute kidney failure, unspecified Status: Acute (3) Sepsis Code(s): A41.9 - Sepsis, unspecified organism Status: Acute (4) Rhabdomyolysis Code(s): M62.82 - Rhabdomyolysis Status: Acute - Plan A/P: 1. Sepsis: Temp 101.3, HR 104, WBC 21, no obvious source, CXR w/ no acute findings, U/a negative. Follow up cultures, continue empiric IV Abx for broad spectrum coverage, IVF for hydration. 2. Rhabdomyolysis: CPK 7593, likely viral myositis, aggressive IVF for hydration, repeat CPK for trend. 3. Hereditary Spherocytosis: w/ Chronic Anemia, Hgb 9.3, reports baseline Hgb 11-12, will repeat labs for trend, transfuse as needed. 4. KAREN: Creatinine 1.44, no previous labs for comparison, presumably new. IVF for hydration, monitor I/O, repeat labs. 5. DVT Prophylaxis: SCD/Teds 6. Social work for d/c planning as needed 7. Case discussed w/ ER physician at length, labs/records/imaging reviewed by me.
[2018-04-12] MEDS: Piperacil/Tazo 4.5 GM Premix 4.5 GM/100 ML BAG IV.SIG SCH ×3 (05:04→17:25)
[2018-04-12] MEDS: Folic Acid 1 MG Tablet PO SCH (08:07)
[2018-04-12] MEDS: Senna/Docusate Sodium 8.6/50 MG Tablet PO SCH ×2 (09:06→21:37)
[2018-04-12 11:27] LABS: Hemoglobin 7.4 gm/dL (13.0-17.0); Mean Corpuscular Hemoglobin 32.1 pg (27.0-34.0); Mean Corpuscular Volume 87.5 fL (80.0-100.0); Mean Platelet Volume 7.2 fL (7.0-11.0); Platelet Count 174 th/mm3 (150-450); Red Cell Distribution Width 20.8 % (11.6-17.2); White Blood Count 10.3 th/mm3 (4.0-11.0)
[2018-04-12 11:29] LABS: CKMB Percent 0.1 % (0.0-4.0); Creatine Kinase MB 5.4 ng/mL (0.5-3.6)
[2018-04-12 11:35] LABS: Mean Corpuscular HGB Conc 36.7 % (32.0-36.0)
[2018-04-12 11:37] LABS: Hematocrit 20.1 % (39.0-51.0)
[2018-04-12] MEDS: Vancomycin Inj 1,000 MG in Sodium Chlor 0.9% Inj 250 ML IV.SIG SCH (12:39)
--- NOTE | 2018-04-12 13:25 | ECG ---
Date Performed: 04/11/2018 Time Performed: 21:34:11 PTAGE: 17 years EKG: SINUS TACHYCARDIA NONSPECIFIC T-WAVE ABNORMALITY ABNORMAL RHYTHM ECG NO PREVIOUS TRACING DOCTOR: Ivy Masterson Interpretating Date/Time 04/12/2018 13:23:59
--- NOTE | 2018-04-12 13:44 | P.PN ---
Subjective Interval history: follow up for sepsis: no fever today, feels better, mild nasal congestion, sore throat better, feels that neck is swollen. No cp, no sob, no difficulty swallowing, no rashes. Urine concentrated, judy colored. D/W mother, hx of hereditary spherocytosis since age 3, last Hgb in 03/2018 was 9. No prior PRBC transfusion. Has mild splenomegaly and previous cholecystectomy in 2011. Provided name of surgical processor and contact information. Physical Exam Vital signs: Vital Signs 04/11/18 20:06 04/11/18 20:09 04/11/18 22:04 Temperature 102.7 F H 100.5 F H Pulse Rate 100 H 113 H Respiratory Rate 20 18 Blood Pressure 123/56 L 114/49 L Pulse Oximetry 100 100 99 04/11/18 22:15 04/11/18 22:42 04/11/18 23:31 Temperature 101.3 F H 98.3 F Pulse Rate 115 H 115 H 114 H Respiratory Rate 20 16 18 Blood Pressure 121/55 L Pulse Oximetry 98 98 98 04/12/18 00:02 04/12/18 01:15 04/12/18 02:28 Temperature 100.1 F H Pulse Rate 108 H 108 H 100 H Respiratory Rate 18 Blood Pressure 110/51 L Pulse Oximetry 78 L 04/12/18 04:00 04/12/18 04:27 04/12/18 08:00 Temperature 97.8 F 97.9 F Pulse Rate 89 91 H 88 Respiratory Rate 16 20 Blood Pressure 100/52 L 107/55 L Pulse Oximetry 99 99 04/12/18 09:00 04/12/18 12:00 Temperature 98.3 F Pulse Rate 100 H 94 H Respiratory Rate 20 Blood Pressure 117/56 L Pulse Oximetry 97 Intake & Output 04/11/18 04/12/18 04/12/18 18:59 06:59 18:59 Intake Total 2880 / 2880 350 / 350 Balance 2880 / 2880 350 / 350 Weight 80.7 kg Intake: IV 2400 / 2400 350 / 350 Zosyn 3.375 GM Premix 50 ML @ 50 / 50 100 mls/hr IV.SIG ONCE ONE Rx#: [id number] Zosyn 4.5 GM Premix 4.5 gm In 100 / 100 100 / 100 100 ml @ 200 mls/hr IV.SIG Q6H [facility] Rx#:[id number] NS Inj 1,000 ML @ Wide Open IV. 1999 SIG BOLUS ONE Rx#:[id number] Vancomycin Inj 1,000 MG In NS 250 / 250 250 / 250 Inj 250 ML @ 250 mls/hr IV.SIG Q12H [facility] Rx#:[id number] Oral 480 / 480 Other: # Voids 1 Date of Last Bowel Movement 04/11/18 # Bowel Movements 0 Weight On Admission 78.9 kg Narrative: GENERAL: Well-nourished, well-developed young male, in no apparent distress SKIN: Warm and dry. HEAD: Atraumatic. Normocephalic. EYES: Pupils equal and round. No scleral icterus. No injection or drainage. ENT: No nasal bleeding or discharge. Mucous membranes pink and moist. NECK: Trachea midline. No JVD. CARDIOVASCULAR: Regular rate and rhythm. RESPIRATORY: No accessory muscle use. Clear to auscultation. Breath sounds equal bilaterally. GASTROINTESTINAL: Abdomen soft, non-tender, nondistended. Hepatic and splenic margins not palpable. MUSCULOSKELETAL: Extremities without clubbing, cyanosis, or edema. No obvious deformities. NEUROLOGICAL: Awake and alert. No obvious cranial nerve deficits. Motor grossly within normal limits. Five out of 5 muscle strength in the arms and legs. Normal speech. PSYCHIATRIC: Appropriate mood and affect; insight and judgment normal. Results - Labs CBC & Chem 7: 04/12/18 11:12 04/11/18 21:15 Laboratory Results - last 24 hr 04/11/18 04/11/18 04/11/18 21:15 21:15 21:15 WBC 21.0 H RBC 2.93 L Hgb 9.4 L Hct 26.3 L MCV 89.9 MCH 32.0 MCHC 35.6 RDW 21.2 H Plt Count 212 MPV 8.3 Prelim Diff (Auto) Slide review pending Neut % (Auto) 82.9 H Lymph % (Auto) 5.6 L [place] % (Auto) 11.2 H Eos % (Auto) 0.1 Baso % (Auto) 0.2 Neut # (Auto) 17.4 H Lymph # (Auto) 1.2 [place] # (Auto) 2.4 H Eos # (Auto) 0.0 Baso # (Auto) 0.0 WBC Differential . Diff Scan Auto diff confirmed Differential Comment . PT 12.6 H INR 1.2 APTT 27.9 Sodium 140 Potassium 3.5 Chloride 103 Carbon Dioxide 23.5 Anion Gap 14 BUN 25 H Creatinine 1.44 H Estimated GFR 63 L Random Glucose 101 Lactic Acid Calcium 8.3 L Magnesium 1.9 Total Bilirubin 11.4 H AST 321 H ALT 96 H Alkaline Phosphatase 69 Total Creatine Kinase 7593 H CK-MB (CK-2) Less than 1.0 CK-MB (CK-2) % 0.0 Total Protein 7.2 Albumin 4.3 Lipase 53 L Urine Color Urine Clarity Urine pH Ur Specific [place] Urine Protein Urine Glucose (UA) Urine Ketones Urine Occult Blood Urine Nitrate Urine Bilirubin Urine Urobilinogen Ur Leukocyte Esterase Urine RBC Urine WBC Hyaline Casts Urine Mucus Micro UA Comment Ur Microscopic Review Urine Culture Comments Monoscreen 04/11/18 04/11/18 04/11/18 21:15 21:15 22:30 WBC RBC Hgb Hct MCV MCH MCHC RDW Plt Count MPV Prelim Diff (Auto) Neut % (Auto) Lymph % (Auto) [place] % (Auto) Eos % (Auto) Baso % (Auto) Neut # (Auto) Lymph # (Auto) [place] # (Auto) Eos # (Auto) Baso # (Auto) WBC Differential Diff Scan Differential Comment PT INR APTT Sodium Potassium Chloride Carbon Dioxide Anion Gap BUN Creatinine Estimated GFR Random Glucose Lactic Acid 1.6 Calcium Magnesium Total Bilirubin AST ALT Alkaline Phosphatase Total Creatine Kinase Cancelled CK-MB (CK-2) CK-MB (CK-2) % Total Protein Albumin Lipase Urine Color Judy Urine Clarity Hazy H Urine pH 5.0 Ur Specific [place] 1.026 Urine Protein Negative Urine Glucose (UA) Negative Urine Ketones Negative Urine Occult Blood Moderate H Urine Nitrate Negative Urine Bilirubin Negative Urine Urobilinogen 4 or greater Ur Leukocyte Esterase Negative Urine RBC 3 Urine WBC 5 Hyaline Casts 44 Urine Mucus Many H Micro UA Comment Culture not ind Ur Microscopic Review Not Reportable Urine Culture Comments Culture not ind Monoscreen 04/11/18 04/12/18 04/12/18 23:36 10:12 11:12 WBC 10.3 D RBC 2.30 L Hgb 7.4 L D Hct 20.1 L* MCV 87.5 MCH 32.1 MCHC 36.7 H RDW 20.8 H Plt Count 174 MPV 7.2 Prelim Diff (Auto) Neut % (Auto) Lymph % (Auto) [place] % (Auto) Eos % (Auto) Baso % (Auto) Neut # (Auto) Lymph # (Auto) [place] # (Auto) Eos # (Auto) Baso # (Auto) WBC Differential Diff Scan Differential Comment PT INR APTT Sodium Potassium Chloride Carbon Dioxide Anion Gap BUN Creatinine Estimated GFR Random Glucose Lactic Acid Calcium Magnesium Total Bilirubin AST ALT Alkaline Phosphatase Total Creatine Kinase 18454 H CK-MB (CK-2) 5.4 H CK-MB (CK-2) % 0.1 Total Protein Albumin Lipase Urine Color Urine Clarity Urine pH Ur Specific [place] Urine Protein Urine Glucose (UA) Urine Ketones Urine Occult Blood Urine Nitrate Urine Bilirubin Urine Urobilinogen Ur Leukocyte Esterase Urine RBC Urine WBC Hyaline Casts Urine Mucus Micro UA Comment Ur Microscopic Review Urine Culture Comments Monoscreen Neg Microbiology 04/11/18 21:36 Throat Group A Streptococcus Screen/Cult - Preliminary Immature growth - reincubate 04/11/18 21:15 Blood - Peripheral Aerobic Blood Culture - Preliminary No growth in 1 day 04/11/18 21:15 Blood - Peripheral Anaerobic Blood Culture - Preliminary No growth in 1 day 04/11/18 21:10 Blood - Peripheral Aerobic Blood Culture - Preliminary No growth in 1 day 04/11/18 21:10 Blood - Peripheral Anaerobic Blood Culture - Preliminary No growth in 1 day 04/11/18 21:36 Throat Group A Streptococcus Screen (NIA) - Final - Imaging Impressions Chest X-Ray 04/11/18 21:08 CONCLUSION: No evidence of acute cardiopulmonary process. Assessment and Plan - Assessment (1) Hereditary spherocytosis Code(s): D58.0 - Hereditary spherocytosis Status: Acute (2) KAREN (acute kidney injury) Code(s): N17.9 - Acute kidney failure, unspecified Status: Acute (3) Sepsis Code(s): A41.9 - Sepsis, unspecified organism Status: Acute (4) Rhabdomyolysis Code(s): M62.82 - Rhabdomyolysis Status: Acute (5) Anemia Code(s): D64.9 - Anemia, unspecified Status: Acute - Plan Assessment/Plan: This is a 17-year-old male with a PMH of Hereditary Spherocytosis who presented to the ER w/ myalgias, sore throat and headache x1 day. Notes subjective fever/ chills. Has been taking OTC medications w/ minimal relief. On arrival, BP 121/ 55, HR 115, O2 sat 98% on RA, Temp 101.3. WBC 21. INR 1.2. Creatinine 1.44. CPK 7593. Hemoglobin 9.3, reports baseline hemoglobin 11-12. U/a negative. Rapides negative. CXR no acute findings. S/p Vanc/Zosyn in ER. Sepsis, febrile with temp 101.3, tachycardic heart rate 104, WBC 21. No obvious source of infection. Possibly viral Normal saline at 100 hour Continue to follow cultures, so far negative -strep is negative -WBC trending down Continue with antibiotics Rhabdomyolysis, CPK 7593, ?viral myositis. -CPK this morning 10,010 -continue with aggressive IVF for hydration -Repeat CPK in am KAREN, creat 1.44, presumably new finding. -Continue IVF -Follow BMP in am Hereditary Spherocytosis: w/ Chronic Anemia, Hgb 9.3, reports baseline Hgb 11- 12 -Hgb 7.4/20.1, continue to follow CBC, no transfusion at this time -will check retic count -d/w Dr. Kenney (Division Director in [place], [place] phone [phone]). If retic count < 5% and Hgb 7, recommends PRBC transfusion. Pt. has never had transfusion before. Baseline Hgb was 12 and Retic count 15 to 20% December 2017) Records sent from his office, reviewed, in chart -will consult hematology to assist with management -follow CBC in am Hyperbilirubinemia, T zach 11.4. (Baseline 7.7) Hx lap cheikh 2011 -Follow T bili DVT Prophylaxis: SCD/Teds D/W at length with pt's mom, med records faxed from PCP's office, reviewed D/W Dr. Kenney Repeat labs in am (5) Anemia Qualifiers: Anemia type: acquired or hereditary hemolytic anemia Hemolytic anemia type: hereditary hemolytic anemia, unspecified Qualified Code(s): D58.9 - Hereditary hemolytic anemia, unspecified
[2018-04-12 17:55] LABS: Reticulocyte Percent 16.1 % (0.4-3.0)
--- NOTE | 2018-04-12 23:36 | MB ---
cc: Pepe Reyes MD DATE: 04/12/2018 REASON FOR CONSULTATION: Consult requested by the hospitalists for evaluation of hemolytic anemia in a patient with a history of hereditary spherocytosis. HISTORY OF PRESENT ILLNESS: Paul is a pleasant 17-year-old male. He is a student at [employer]. 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 The patient came into the emergency room complaining of severe muscle aches, sore throat and headache with fever and chills. In the emergency room, the patient was found to be ill and sepsis was suspected. The patient is now admitted to the hospital. Blood tests reveal rhabdomyolysis and hemolytic anemia. I have been asked to see the patient for further evaluation. History is obtained through the patient and his mother, who was present at the bedside. The patient's mother has a history of hereditary spherocytosis. She had not required any splenectomy, although it was recommended. The patient was diagnosed with hereditary spherocytosis at the age of 3 when he was in [place]. He was quite ill at that time. He has more or less a similar episode this time per his mother. The patient has been followed up by a cloth mercerizing supervisor in [place]. According to the patient, his baseline hemoglobin is around 11 and baseline bilirubin is around 7 to 9. He has been taking folic acid daily. He states that his bilirubin goes up and down depending on how much he drinks water. He has noticed that his urine has changed color. He is also complaining of fever with chills. The rest of the review of systems is negative. PAST MEDICAL HISTORY: Hereditary spherocytosis. PAST SURGICAL HISTORY: Cholecystectomy due to gallstones and tonsillectomy. ALLERGIES: NONE. MEDICATIONS: Prior to coming to the hospital is folic acid 1 mg daily. FAMILY HISTORY: The patient's mother has hereditary spherocytosis. The patient's father is alive and well. He has 1 younger brother who is alive and well. He does not have any sisters or any children. No other family members have Hereditary Spherocytosis SOCIAL HISTORY: The patient is single. He is a student at [employer]. He does not smoke cigarettes and does not drink alcohol. PHYSICAL EXAMINATION: GENERAL: He is a well-developed, well-nourished white male who appears to be in mild to moderate distress due to the fever and chills. VITAL SIGNS: Temperature 100.4, heart rate 106, blood pressure 108/50. HEENT: PERRLA. Sclerae are deeply icteric. NECK: No lymphadenopathy noted. LUNGS: Clear. No wheezing, rhonchi or rales. CARDIOVASCULAR: Tachycardic with no murmur. ABDOMEN: Soft. Spleen is palpable. EXTREMITIES: No pedal edema. NEUROLOGIC: Awake, alert, oriented x3. SKIN: No significant lesions noted. ASSESSMENT: 1. History of hereditary spherocytosis. 2. Exacerbation of hemolytic anemia from acute febrile illness. 3. Acute febrile illness. The source is unknown. The patient clinically appears to have sepsis. 4. Rhabdomyolysis. 5. Acute mild renal insufficiency. PLAN: I have reviewed his available records and I have discussed with the patient and his mother regarding the hereditary spherocytosis. His CBC last night when he came to the emergency room showed white count 21, hemoglobin 9.4, platelet count 212. Today, his hemoglobin has dropped from 9.4 to 7.4. White count is now back to normal. The reticulocyte count is high at 16.1. The comprehensive metabolic profile is normal except the BUN is 25, creatinine 1.44, GFR 63. Calcium is mildly low at 8.3. However, the total bilirubin is very high at 11.4. AST is 321, ALT is 96, alkaline phosphatase is normal. CPK is 7593. The patient appears to have rhabdomyolysis. He has been getting hydration. The patient's hemoglobin has dropped from 9.4 to 7.4. We discussed about a blood transfusion. However, the patient has declined a blood transfusion at this time as he knows that if the hemoglobin is 7, he can tolerate it and he prefers not to have any blood transfusions. He has been told previously about a splenectomy, but he states that his spleen is not that large and he prefers not to undergo surgery to remove the spleen. He pretty much knows about his disease as his mother also has hereditary spherocytosis. I have ordered the anemia workup for tomorrow morning. Further recommendations based on his hospital stay. Thank you for asking my opinion. MD FREDA Ashraf/madiha , 10:49 PM , 11:07 PM DELFINO
[2018-04-13] MEDS: Piperacil/Tazo 4.5 GM Premix 4.5 GM/100 ML BAG IV.SIG SCH ×3 (00:42→11:54)
[2018-04-13] MEDS ORDERED: Pharmacy Ordered Lab Info OTHER ONE (00:45)
[2018-04-13] MEDS: Vancomycin Inj 1,000 MG in Sodium Chlor 0.9% Inj 250 ML IV.SIG SCH (01:49)
[2018-04-13] MEDS ORDERED: Butalbital/APAP/Caff 50/325/40 MG Tablet PO ONE (02:22)
[2018-04-13] MEDS: Sod Chloride 0.9% Inj 1,000 ML IV.CONT SCH ×2 (02:40→06:48)
[2018-04-13 05:32] LABS: Baso % (Auto) 0.5 % (0.0-2.0); Eos % (Auto) 0.4 % (0.0-4.0); Hemoglobin 7.4 gm/dL (13.0-17.0); Lymph # (Auto) 1.6 th/mm3 (1.0-4.8); Lymph % (Auto) 22.9 % (9.0-44.0); Mean Corpuscular HGB Conc 35.9 % (32.0-36.0); Mean Corpuscular Hemoglobin 31.5 pg (27.0-34.0); Mean Corpuscular Volume 87.7 fL (80.0-100.0); Mean Platelet Volume 7.6 fL (7.0-11.0); Mono # (Auto) 0.8 th/mm3 (0.0-0.9); Mono % (Auto) 10.7 % (0.0-8.0); Neut # (Auto) 4.7 th/mm3 (1.8-7.7); Neut % (Auto) 65.5 % (16.0-70.0); Platelet Count 174 th/mm3 (150-450); Red Blood Count 2.34 mil/mm3 (4.50-5.90); Red Cell Distribution Width 21.3 % (11.6-17.2); White Blood Count 7.2 th/mm3 (4.0-11.0)
[2018-04-13 05:56] LABS: Iron 51 mcg/dL (65-175); Lactate Dehydrogenase 318 U/L (87-241)
[2018-04-13 05:58] LABS: Hematocrit 20.5 % (39.0-51.0)
[2018-04-13 06:12] LABS: Alanine Aminotransferase 96 U/L (9-52); Albumin 3.2 g/dL (3.4-5.0); Alkaline Phosphatase 44 U/L (45-117); Anion Gap 10 meq/L (5-15); Aspartate Aminotransferase 293 U/L (15-39); Blood Urea Nitrogen 8 mg/dL (7-18); Calcium 7.7 mg/dL (8.5-10.1); Carbon Dioxide 22.6 meq/L (21.0-32.0); Chloride 111 meq/L (98-107); Creatine Kinase 6479 U/L (39-308); Glomerular Filtration Rate Greater Than 89 mL/min (>89); Glucose,Random 84 mg/dL (74-106); Potassium 3.4 meq/L (3.5-5.1); Sodium 144 meq/L (136-145)
[2018-04-13 06:22] LABS: Ferritin 598 ng/mL (26-388); Total Iron Binding Capacity 204 mcg/dL (250-450); Vitamin B12 335 pg/mL (193-986)
[2018-04-13] MEDS: Senna/Docusate Sodium 8.6/50 MG Tablet PO SCH ×2 (08:06→20:29)
[2018-04-13] MEDS: Folic Acid 1 MG Tablet PO SCH (08:06)
--- NOTE | 2018-04-13 08:25 | P.PNIM ---
Subjective Interval history: The patient was resting comfortably in bed. His family was at the bedside. The patient wanted to know what his labs were today. He said he has not been eating that much. He states that he was working out excessively for 5 days in a row prior to the hospitalization. He was supposed to start at [facility] yesterday and had questions about paperwork. Physical Exam Vital signs: Vital Signs 04/12/18 09:00 04/12/18 12:00 04/12/18 16:00 Temperature 98.3 F 98.2 F Pulse Rate 100 H 100 H 106 H Respiratory Rate 20 20 Blood Pressure 117/56 L 108/50 L Pulse Oximetry 97 100 04/12/18 17:19 04/12/18 18:10 04/12/18 20:00 Temperature 100.4 F H 98.1 F Pulse Rate 138 H 112 H Respiratory Rate 17 Blood Pressure 113/52 L Pulse Oximetry 100 04/13/18 00:00 04/13/18 04:00 Temperature 98.1 F 97.6 F Pulse Rate 101 H 96 H Respiratory Rate 15 14 Blood Pressure 128/66 107/56 L Pulse Oximetry 99 100 Intake & Output 04/12/18 04/13/18 04/13/18 18:59 06:59 18:59 Intake Total 1810 / 1810 1870 / 1870 Balance 1810 / 1810 1870 / 1870 Weight 80.2 kg Intake: IV 1450 / 1450 1450 / 1450 NS Inj 1,000 ML @ 100 mls/hr IV 1000 / 1000 1000 / 1000 .CONT .Q10H DAGO Rx#:[id number] Zosyn 4.5 GM Premix 4.5 gm In 200 / 200 200 / 200 100 ml @ 200 mls/hr IV.SIG Q6H DAGO Rx#:[id number] Vancomycin Inj 1,000 MG In NS 250 / 250 250 / 250 Inj 250 ML @ 250 mls/hr IV.SIG Q12H DAGO Rx#:[id number] Oral 360 / 360 420 / 420 Other: # Voids 2 Date of Last Bowel Movement 04/11/18 Narrative: GENERAL: Well-nourished, well-developed young male, in no apparent distress. SKIN: Warm and dry. HEAD: Atraumatic. Normocephalic. EYES: Pupils equal and round. No scleral icterus. No injection or drainage. ENT: No nasal bleeding or discharge. Mucous membranes pink and moist. NECK: Trachea midline. No JVD. CARDIOVASCULAR: Regular rate and rhythm. RESPIRATORY: No accessory muscle use. Clear to auscultation. Breath sounds equal bilaterally. GASTROINTESTINAL: Abdomen soft, non-tender, nondistended. Hepatic and splenic margins not palpable. MUSCULOSKELETAL: Extremities without clubbing, cyanosis, or edema. No obvious deformities. NEUROLOGICAL: Awake and alert. No obvious cranial nerve deficits. Motor grossly within normal limits. Five out of 5 muscle strength in the arms and legs. Normal speech. PSYCHIATRIC: Appropriate mood and affect; insight and judgment normal. Results - Labs CBC & Chem 7: 04/13/18 04:37 04/13/18 04:37 Laboratory Results - last 24 hr 04/12/18 04/12/18 04/12/18 10:12 11:12 11:12 WBC 10.3 D Corrected WBC RBC 2.30 L Hgb 7.4 L D Hct 20.1 L* MCV 87.5 MCH 32.1 MCHC 36.7 H RDW 20.8 H Plt Count 174 MPV 7.2 Prelim Diff (Auto) Neut % (Auto) Lymph % (Auto) [place] % (Auto) Eos % (Auto) Baso % (Auto) Neut # (Auto) Lymph # (Auto) [place] # (Auto) Eos # (Auto) Baso # (Auto) WBC Differential Differential Comment Retic Count 16.1 H Absolute Retic 368.8 H Haptoglobin Hematology Comments Sodium Potassium Chloride Carbon Dioxide Anion Gap BUN Creatinine Estimated GFR Random Glucose Calcium Iron TIBC % Saturation Ferritin Total Bilirubin Direct Bilirubin Indirect Bilirubin AST ALT Alkaline Phosphatase Lactate Dehydrogenase Total Creatine Kinase 45477 H CK-MB (CK-2) 5.4 H CK-MB (CK-2) % 0.1 Total Protein Albumin Vitamin B12 Vancomycin Trough Direct Antiglob Test 04/13/18 04/13/18 04/13/18 00:45 04:37 04:37 WBC Cancelled Corrected WBC Cancelled RBC Cancelled Hgb Cancelled Hct Cancelled MCV Cancelled MCH Cancelled MCHC Cancelled RDW Cancelled Plt Count Cancelled MPV Cancelled Prelim Diff (Auto) Neut % (Auto) Lymph % (Auto) [place] % (Auto) Eos % (Auto) Baso % (Auto) Neut # (Auto) Lymph # (Auto) [place] # (Auto) Eos # (Auto) Baso # (Auto) WBC Differential Differential Comment Retic Count Absolute Retic Haptoglobin Hematology Comments Cancelled Sodium 144 Potassium 3.4 L Chloride 111 H D Carbon Dioxide 22.6 Anion Gap 10 BUN 8 Creatinine 0.84 Estimated GFR Greater than 89 Random Glucose 84 Calcium 7.7 L Iron TIBC % Saturation Ferritin Total Bilirubin 4.4 H Direct Bilirubin Indirect Bilirubin AST 293 H ALT 96 H Alkaline Phosphatase 44 L Lactate Dehydrogenase Total Creatine Kinase 6479 H CK-MB (CK-2) Less than 1.0 CK-MB (CK-2) % 0.0 Total Protein 6.0 L D Albumin 3.2 L D Vitamin B12 Vancomycin Trough 2.6 L Direct Antiglob Test 04/13/18 04/13/18 04/13/18 04:37 04:37 04:37 WBC 7.2 Corrected WBC RBC 2.34 L Hgb 7.4 L Hct 20.5 L* MCV 87.7 MCH 31.5 MCHC 35.9 RDW 21.3 H Plt Count 174 MPV 7.6 Prelim Diff (Auto) Stone Splitter Neut % (Auto) 65.5 Lymph % (Auto) 22.9 S[place]ent % (Auto) 10.7 H Eos % (Auto) 0.4 Baso % (Auto) 0.5 Neut # (Auto) 4.7 Lymph # (Auto) 1.6 [place] # (Auto) 0.8 Eos # (Auto) 0.0 Baso # (Auto) 0.0 WBC Differential . Differential Comment Auto diff final Retic Count Absolute Retic Haptoglobin Less than 200 Hematology Comments Sodium Potassium Chloride Carbon Dioxide Anion Gap BUN Creatinine Estimated GFR Random Glucose Calcium Iron 51 L TIBC 204 L % Saturation 25.0 Ferritin 598 H Total Bilirubin 4.4 H Direct Bilirubin 0.6 H Indirect Bilirubin 3.8 H AST ALT Alkaline Phosphatase Lactate Dehydrogenase 318 H Total Creatine Kinase CK-MB (CK-2) CK-MB (CK-2) % Total Protein Albumin Vitamin B12 335 Vancomycin Trough Direct Antiglob Test Negative Microbiology 04/11/18 21:36 Throat Group A Streptococcus Screen/Cult - Preliminary Immature growth - reincubate 04/11/18 21:15 Blood - Peripheral Aerobic Blood Culture - Preliminary No growth in 1 day 04/11/18 21:15 Blood - Peripheral Anaerobic Blood Culture - Preliminary No growth in 1 day 04/11/18 21:10 Blood - Peripheral Aerobic Blood Culture - Preliminary No growth in 1 day 04/11/18 21:10 Blood - Peripheral Anaerobic Blood Culture - Preliminary No growth in 1 day Assessment and Plan - Assessment (1) Hereditary spherocytosis Code(s): D58.0 - Hereditary spherocytosis Status: Acute (2) KAREN (acute kidney injury) Code(s): N17.9 - Acute kidney failure, unspecified Status: Acute (3) Sepsis Code(s): A41.9 - Sepsis, unspecified organism Status: Acute (4) Rhabdomyolysis Code(s): M62.82 - Rhabdomyolysis Status: Acute (5) Anemia Code(s): D64.9 - Anemia, unspecified Status: Acute - Plan This is a 17-year-old male with a PMH of Hereditary Spherocytosis who presented to the ER w/ myalgias, sore throat and headache x1 day. Notes subjective fever/ chills. Has been taking OTC medications w/ minimal relief. He worked out at the gym for five days straight prior to admission. On arrival, BP 121/55, HR 115, O2 sat 98% on RA, Temp 101.3. WBC 21. INR 1.2. Creatinine 1.44. CPK 7593. Hemoglobin 9.3, reports baseline hemoglobin 11-12. U/a negative. Sargent negative. CXR no acute findings. S/p Vanc/Zosyn in ER. SIRS With temp 101.3, tachycardic heart rate 104, WBC 21. No obvious source of infection. Possibly viral. Strep negative. -IVFS. -Continue to follow cultures, so far negative. -Continue with antibiotics for now. Rhabdomyolysis CPK 7593, ?viral myositis. He did work out at the gym x 5 days prior to admission. CPK improving. -continue with aggressive IVF for hydration. -Repeat CPK in am. KAREN Creat 1.44, s/t above. Improved with IVFs. -Continue IVFs and ADAT. -Follow BMP in am. Hereditary spherocytosis W/ chronic anemia. Hematology consult appreciated. -follow CBC in am. No transfusion indicated at this time. -follow up with hematology. Hyperbilirubinemia T zach 11.4. (Baseline 7.7). -Follow T bili. Improving. Hypokalemia S/t decreased PO intake. -IVFs with KCl and monitor. DVT Prophylaxis: SCD/Teds (5) Anemia Qualifiers: Anemia type: acquired or hereditary hemolytic anemia Hemolytic anemia type: hereditary hemolytic anemia, unspecified Qualified Code(s): D58.9 - Hereditary hemolytic anemia, unspecified
[2018-04-13] MEDS: Vancomycin Inj 1,250 MG in Sodium Chlor 0.9% Inj 250 ML IV.SIG SCH ×2 (09:34→17:06)
[2018-04-13] MEDS: KCL 20 mEq/D5W/NaCl 0.45% Inj 1,000 ML IV.CONT SCH ×3 (09:34→20:02)
--- NOTE | 2018-04-13 14:24 | P.PNONC ---
Subjective Interval history: Afebrile Patient reports he is feeling much better Color of his urine is lightening Asking how many patients we have in our practice with hereditary spherocytosis Objective Vital Signs/Intake & Output: Vital Signs 04/12/18 16:00 04/12/18 17:19 04/12/18 18:10 Temperature 98.2 F 100.4 F H Pulse Rate 106 H 138 H Respiratory Rate 20 Blood Pressure 108/50 L Pulse Oximetry 100 04/12/18 20:00 04/13/18 00:00 04/13/18 04:00 Temperature 98.1 F 98.1 F 97.6 F Pulse Rate 112 H 101 H 96 H Respiratory Rate 17 15 14 Blood Pressure 113/52 L 128/66 107/56 L Pulse Oximetry 100 99 100 04/13/18 08:00 04/13/18 12:00 Temperature 97.6 F 98 F Pulse Rate 89 87 Respiratory Rate 20 20 Blood Pressure 116/60 120/60 Pulse Oximetry 100 100 Intake & Output 04/12/18 04/13/18 04/13/18 18:59 06:59 18:59 Intake Total 1810 / 1810 1870 / 1870 1265 / 1265 Output Total Balance 1810 / 1810 1870 / 1870 1264 / 1264 Weight 176 lb 12.972 oz Intake: IV 1450 / 1450 1450 / 1450 1265 / 1265 D5W/1/2NS + KCL 20 mEq Inj 1, 1000 / 1000 000 ML @ 125 mls/hr IV.CONT . Q8H DAGO Rx#:[id number] NS Inj 1,000 ML @ 100 mls/hr IV 1000 / 1000 1000 / 1000 .CONT .Q10H DAGO Rx#:[id number] Zosyn 4.5 GM Premix 4.5 gm In 200 / 200 200 / 200 100 ml @ 200 mls/hr IV.SIG Q6H DAGO Rx#:[id number] Vancomycin Inj 1,000 MG In NS 250 / 250 250 / 250 Inj 250 ML @ 250 mls/hr IV.SIG Q12H DAGO Rx#:[id number] Vancomycin Inj 1,250 MG In NS 265 / 265 Inj 250 ML @ 250 mls/hr IV.SIG Q8H DAGO Rx#:[id number] Oral 360 / 360 420 / 420 Output: Urine 1 / 1 Other: # Voids 2 Date of Last Bowel Movement 04/11/18 Result Diagrams: 04/14/18 03:17 04/14/18 03:17 Laboratory Results: Laboratory Results - last 24 hr 04/12/18 04/13/18 04/13/18 11:12 00:45 04:37 WBC Cancelled Corrected WBC Cancelled RBC Cancelled Hgb Cancelled Hct Cancelled MCV Cancelled MCH Cancelled MCHC Cancelled RDW Cancelled Plt Count Cancelled MPV Cancelled Prelim Diff (Auto) Neut % (Auto) Lymph % (Auto) [place] % (Auto) Eos % (Auto) Baso % (Auto) Neut # (Auto) Lymph # (Auto) [place] # (Auto) Eos # (Auto) Baso # (Auto) WBC Differential Differential Comment Retic Count 16.1 H Absolute Retic 368.8 H Haptoglobin Hematology Comments Cancelled Sodium Potassium Chloride Carbon Dioxide Anion Gap BUN Creatinine Estimated GFR Random Glucose Calcium Iron TIBC % Saturation Ferritin Total Bilirubin Direct Bilirubin Indirect Bilirubin AST ALT Alkaline Phosphatase Lactate Dehydrogenase Total Creatine Kinase CK-MB (CK-2) CK-MB (CK-2) % Total Protein Albumin Vitamin B12 Vancomycin Trough 2.6 L Direct Antiglob Test 04/13/18 04/13/18 04/13/18 04:37 04:37 04:37 WBC 7.2 Corrected WBC RBC 2.34 L Hgb 7.4 L Hct 20.5 L* MCV 87.7 MCH 31.5 MCHC 35.9 RDW 21.3 H Plt Count 174 MPV 7.6 Prelim Diff (Auto) Pathology Assistant Neut % (Auto) 65.5 Lymph % (Auto) 22.9 [place] % (Auto) 10.7 H Eos % (Auto) 0.4 Baso % (Auto) 0.5 Neut # (Auto) 4.7 Lymph # (Auto) 1.6 [place] # (Auto) 0.8 Eos # (Auto) 0.0 Baso # (Auto) 0.0 WBC Differential . Differential Comment Auto diff final Retic Count Absolute Retic Haptoglobin Less than 200 Hematology Comments Sodium 144 Potassium 3.4 L Chloride 111 H D Carbon Dioxide 22.6 Anion Gap 10 BUN 8 Creatinine 0.84 Estimated GFR Greater than 89 Random Glucose 84 Calcium 7.7 L Iron 51 L TIBC 204 L % Saturation 25.0 Ferritin 598 H Total Bilirubin 4.4 H 4.4 H Direct Bilirubin 0.6 H Indirect Bilirubin 3.8 H AST 293 H ALT 96 H Alkaline Phosphatase 44 L Lactate Dehydrogenase 318 H Total Creatine Kinase 6479 H CK-MB (CK-2) Less than 1.0 CK-MB (CK-2) % 0.0 Total Protein 6.0 L D Albumin 3.2 L D Vitamin B12 335 Vancomycin Trough Direct Antiglob Test 04/13/18 04:37 WBC Corrected WBC RBC Hgb Hct MCV MCH MCHC RDW Plt Count MPV Prelim Diff (Auto) Neut % (Auto) Lymph % (Auto) [place] % (Auto) Eos % (Auto) Baso % (Auto) Neut # (Auto) Lymph # (Auto) [place] # (Auto) Eos # (Auto) Baso # (Auto) WBC Differential Differential Comment Retic Count Absolute Retic Haptoglobin Hematology Comments Sodium Potassium Chloride Carbon Dioxide Anion Gap BUN Creatinine Estimated GFR Random Glucose Calcium Iron TIBC % Saturation Ferritin Total Bilirubin Direct Bilirubin Indirect Bilirubin AST ALT Alkaline Phosphatase Lactate Dehydrogenase Total Creatine Kinase CK-MB (CK-2) CK-MB (CK-2) % Total Protein Albumin Vitamin B12 Vancomycin Trough Direct Antiglob Test Negative Culture Results: Microbiology 04/11/18 21:15 Aerobic Blood Culture - Preliminary Blood - Peripheral No growth in 2 days Anaerobic Blood Culture - Preliminary No growth in 2 days 04/11/18 21:10 Aerobic Blood Culture - Preliminary Blood - Peripheral No growth in 2 days Anaerobic Blood Culture - Preliminary No growth in 2 days 04/11/18 21:36 Group A Streptococcus Screen/Cult - Preliminary Throat No Beta Streptococci isolated at 24 hours 04/11/18 21:36 Group A Streptococcus Screen (INA) - Final Throat Medications: Active Medications Generic Name Dose Route Start Last Admin Trade Name Freq PRN Reason Stop Dose Admin Acetaminophen 650 mg 04/12/18 00:02 04/12/18 17:19 Tylenol PO 650 mg Q4H PRN Administration Temp > 100.4 Folic Acid 1 mg 04/12/18 09:00 04/13/18 08:06 Folic Acid PO 1 mg DAILY DAGO Administration Piperacillin/Tazobactam/Dextrose 4.5 gm in 100 mls @ 200 mls/hr 04/12/18 06: 00 04/13/18 11:54 Zosyn 4.5 Gm Premix IV.SIG 200 mls/hr Q6H DAGO Administration Potassium Chloride/Dextrose/Sod Cl 1,000 mls @ 125 mls/hr 04/13/18 09:00 09:43 D5w/1/2ns + Kcl 20 Meq Inj IV.CONT Infused .Q8H DAGO Infusion Vancomycin HCl 1,250 mg/ 262.5 mls @ 250 mls/hr 04/13/18 10:00 04/13/18 12:18 Sodium Chloride IV.SIG Infused Q8H DAGO Infusion Ondansetron HCl 4 mg 04/12/18 00:02 04/13/18 01:15 Zofran Inj IV.PUSH 4 mg Q6H PRN Administration NAUSEA OR VOMITING Senna/Docusate Sodium 1 tab 04/12/18 09:00 04/13/18 08:06 Noni-Colace PO Not Given BID DAGO Objective Remarks: GENERAL: Young male resting in bed in no obvious distress HEAD: Normocephalic. EYES: No injection or drainage. NECK: Supple, trachea midline. CARDIOVASCULAR: Regular rate and rhythm without murmurs. RESPIRATORY: Clear anteriorly. Breathing unlabored at rest. GASTROINTESTINAL: Abdomen soft, non-tender, nondistended. EXTREMITIES: No cyanosis, or edema. Lower extremities mildly diaphoretic MUSCULOSKELETAL: Adequate muscle tone. NEUROLOGICAL: No obvious focal deficit. Awake, alert, and oriented x3. Assessment/Plan - Plan 17-year-old male with history of admitted with hereditary spherocytosis muscle aches, sore throat and headache. He was found to have rhabdomyolysis and hemolytic anemia. He reports his baseline hemoglobin is around 11 and baseline bilirubin is around 7-9. 1. Hemoglobin noted to be stable today at 7.4. His bilirubin is improving and is down to 4.4 today. Also noted was a decrease in total creatinine kinase. 2. Monitor CBC and bilirubin. Continue IV fluids. 3. Patient remains on vancomycin and Zosyn. His blood cultures have been negative. Throat culture is negative for strep. 4. Discussed with patient that he should follow-up with hematology locally as he will be in the area for some time due to being in college at [employer]. - Attending Statement The exam, history, and the medical decision-making described in the above note were completed with the assistance of the mid-level provider. I reviewed and agree with the findings presented. I attest that I had a [id number] encounter with the patient on the same day, and personally performed and documented my assessment and findings in the medical record. 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 The hemolysis was exacerbated by fever and rhabdomyolysis Continue hydration, folic acid and antibiotics. Monitor CBC and chemistry
[2018-04-13] MEDS ORDERED: Butalbital/APAP/Caff 50/325/40 MG Tablet PO PRN (19:43)
[2018-04-14] MEDS: KCL 20 mEq/D5W/NaCl 0.45% Inj 1,000 ML IV.CONT SCH ×4 (02:51→18:11)
[2018-04-14] MEDS: Vancomycin Inj 1,250 MG in Sodium Chlor 0.9% Inj 250 ML IV.SIG SCH ×3 (02:56→19:41)
[2018-04-14 05:59] LABS: Baso % (Auto) 0.6 % (0.0-2.0); Eos # (Auto) 0.2 th/mm3 (0.0-0.4); Eos % (Auto) 3.2 % (0.0-4.0); Hematocrit 22.1 % (39.0-51.0); Hemoglobin 7.8 gm/dL (13.0-17.0); Lymph # (Auto) 2.8 th/mm3 (1.0-4.8); Lymph % (Auto) 42.3 % (9.0-44.0); Mean Corpuscular HGB Conc 35.5 % (32.0-36.0); Mean Corpuscular Hemoglobin 31.4 pg (27.0-34.0); Mean Corpuscular Volume 88.4 fL (80.0-100.0); Mono # (Auto) 0.4 th/mm3 (0.0-0.9); Mono % (Auto) 5.9 % (0.0-8.0); Neut # (Auto) 3.2 th/mm3 (1.8-7.7); Platelet Count 183 th/mm3 (150-450); Red Cell Distribution Width 20.3 % (11.6-17.2); White Blood Count 6.6 th/mm3 (4.0-11.0)
[2018-04-14 06:22] LABS: Alanine Aminotransferase 101 U/L (9-52); Albumin 3.4 g/dL (3.4-5.0); Anion Gap 11 meq/L (5-15); Aspartate Aminotransferase 238 U/L (15-39); Blood Urea Nitrogen 7 mg/dL (7-18); Calcium 8.1 mg/dL (8.5-10.1); Carbon Dioxide 23.8 meq/L (21.0-32.0); Chloride 109 meq/L (98-107); Glomerular Filtration Rate Greater Than 89 mL/min (>89); Glucose,Random 72 mg/dL (74-106); Magnesium 2.1 mg/dL (1.5-2.5); Potassium 3.4 meq/L (3.5-5.1); Sodium 144 meq/L (136-145)
[2018-04-14 06:35] LABS: Alkaline Phosphatase 42 U/L (45-117); Creatine Kinase 4330 U/L (39-308); Total Protein 6.5 g/dL (6.4-8.2)
[2018-04-14] MEDS: Senna/Docusate Sodium 8.6/50 MG Tablet PO SCH ×2 (08:28→22:21)
[2018-04-14] MEDS: Folic Acid 1 MG Tablet PO SCH (08:30)
[2018-04-14] MEDS ORDERED: Pharmacy Ordered Lab Info OTHER ONE (09:45)
--- NOTE | 2018-04-14 09:54 | P.PNIM ---
Subjective Interval history: The patient was feeling very well and anxious to go home. His mother was at the bedside. He says he has been ambulating. He is tolerating a diet. No acute concerns at this time. Wants to know when he could go back to school. Physical Exam Vital signs: Vital Signs 04/13/18 12:00 04/13/18 16:00 04/13/18 20:00 Temperature 98 F 97.2 F L 97.8 F Pulse Rate 87 77 90 Respiratory Rate 20 20 18 Blood Pressure 120/60 119/58 L 112/82 Pulse Oximetry 100 99 100 04/13/18 22:00 04/14/18 00:00 04/14/18 02:00 Temperature 97.4 F L Pulse Rate 94 H 82 73 Respiratory Rate 15 Blood Pressure 109/55 L Pulse Oximetry 99 04/14/18 04:00 Temperature 97.4 F L Pulse Rate 78 Respiratory Rate 18 Blood Pressure 113/59 L Pulse Oximetry 100 Intake & Output 04/13/18 04/14/18 04/14/18 18:59 06:59 18:59 Intake Total 40858 / 16424 1922.5 / 1922.5 1999 Output Total 2 / 2 Balance 84771 / 69123 1922.5 / 1922.5 1999 Weight 80.8 kg [place]: [place] 20136 / 79963 1262.5 / 1262.5 1999 D5W/1/2NS + KCL 20 mEq Inj , 1999 1000 / 1000 1999 000 ML @ 125 mls/hr IV.CONT . Q8H DAGO Rx#:[id number] NS Inj 1,000 ML @ 100 mls/[place] [address] / 17397 .CONT .Q10H DAGO Rx#:[id number] Zosyn 4.5 GM Premix 4.5 gm In 100 / 100 100 ml @ 200 mls/hr IV.SIG Q6H DAGO Rx#:[id number] Vancomycin Inj 1,250 MG In NS 530 / 530 262.5 / 262.5 Inj 250 ML @ 250 mls/hr IV.SIG Q8H DAGO Rx#:[id number] Oral 480 / 480 660 / 660 Output: Urine / Stool / Other: # Voids 3 Date of Last Bowel Movement 04/13/18 # Bowel Movements 0 Narrative: GENERAL: Well-nourished, well-developed young male, in no apparent distress. SKIN: Warm and dry. HEAD: Atraumatic. Normocephalic. EYES: Pupils equal and round. No scleral icterus. No injection or drainage. ENT: No nasal bleeding or discharge. Mucous membranes pink and moist. NECK: Trachea midline. No JVD. CARDIOVASCULAR: Regular rate and rhythm. RESPIRATORY: No accessory muscle use. Clear to auscultation. Breath sounds equal bilaterally. GASTROINTESTINAL: Abdomen soft, non-tender, nondistended. Hepatic and splenic margins not palpable. MUSCULOSKELETAL: Extremities without clubbing, cyanosis, or edema. No obvious deformities. NEUROLOGICAL: Awake and alert. No obvious cranial nerve deficits. Motor grossly within normal limits. Five out of 5 muscle strength in the arms and legs. Normal speech. PSYCHIATRIC: Appropriate mood and affect; insight and judgment normal. Results - Labs CBC & Chem 7: 04/14/18 03:17 04/14/18 03:17 Laboratory Results - last 24 hr 04/14/18 04/14/18 03:17 03:17 WBC 6.6 RBC 2.50 L Hgb 7.8 L Hct 22.1 L MCV 88.4 MCH 31.4 MCHC 35.5 RDW 20.3 H Plt Count 183 MPV 8.0 Neut % (Auto) 48.0 Lymph % (Auto) 42.3 [place] % (Auto) 5.9 Eos % (Auto) 3.2 Baso % (Auto) 0.6 Neut # (Auto) 3.2 Lymph # (Auto) 2.8 [place] # (Auto) 0.4 Eos # (Auto) 0.2 Baso # (Auto) 0.0 WBC Differential . Differential Comment Auto diff final Sodium 144 Potassium 3.4 L Chloride 109 H Carbon Dioxide 23.8 Anion Gap 11 BUN 7 Creatinine 0.90 Estimated GFR Greater than 89 Random Glucose 72 L Calcium 8.1 L Magnesium 2.1 Total Bilirubin 2.5 H Direct Bilirubin 0.4 H Indirect Bilirubin 2.1 H AST 238 H ALT 101 H Alkaline Phosphatase 42 L Total Creatine Kinase 4330 H CK-MB (CK-2) Less than 1.0 CK-MB (CK-2) % 0.0 Total Protein 6.5 Albumin 3.4 Microbiology 04/11/18 21:15 Blood - Peripheral Aerobic Blood Culture - Preliminary No growth in 2 days 04/11/18 21:15 Blood - Peripheral Anaerobic Blood Culture - Preliminary No growth in 2 days 04/11/18 21:10 Blood - Peripheral Aerobic Blood Culture - Preliminary No growth in 2 days 04/11/18 21:10 Blood - Peripheral Anaerobic Blood Culture - Preliminary No growth in 2 days 04/11/18 21:36 Throat Group A Streptococcus Screen/Cult - Preliminary No Beta Streptococci isolated at 24 hours Assessment and Plan - Assessment (1) Hereditary spherocytosis Code(s): D58.0 - Hereditary spherocytosis Status: Acute (2) KAREN (acute kidney injury) Code(s): N17.9 - Acute kidney failure, unspecified Status: Acute (3) Sepsis Code(s): A41.9 - Sepsis, unspecified organism Status: Acute (4) Rhabdomyolysis Code(s): M62.82 - Rhabdomyolysis Status: Acute (5) Anemia Code(s): D64.9 - Anemia, unspecified Status: Acute - Plan This is a 17-year-old male with a PMH of Hereditary Spherocytosis who presented to the ER w/ myalgias, sore throat and headache x1 day. Notes subjective fever/ chills. Has been taking OTC medications w/ minimal relief. He worked out at the gym for five days straight prior to admission. On arrival, BP 121/55, HR 115, O2 sat 98% on RA, Temp 101.3. WBC 21. INR 1.2. Creatinine 1.44. CPK 7593. Hemoglobin 9.3, reports baseline hemoglobin 11-12. U/a negative. Bonner negative. CXR no acute findings. S/p Vanc/Zosyn in ER. SIRS With temp 101.3, tachycardic heart rate 104, WBC 21. No obvious source of infection. Strep negative. Currently afebrile. Likely s/t rhabdo. -IVFS. -Continue to follow cultures, so far negative. -d/c antibiotics and monitor. Rhabdomyolysis CPK still over 4000. He did work out at the gym x 5 days prior to admission. CPK improving. -continue with aggressive IVF for hydration. -Repeat CPK in am. KAREN Creat 1.44, s/t above. Improved with IVFs. -Continue IVFs and ADAT. -Follow BMP in am. Hereditary spherocytosis W/ chronic anemia. Hematology consult appreciated. -follow CBC in am. No transfusion indicated at this time. -follow up with hematology. Hyperbilirubinemia T zach 11.4. (Baseline 7.7). -Follow T bili. Improving. Hypokalemia/ Hypoglycemia S/t decreased PO intake. -D5 with KCl and monitor. Add PO KCl. DVT Prophylaxis: SCD/Teds (5) Anemia Qualifiers: Anemia type: acquired or hereditary hemolytic anemia Hemolytic anemia type: hereditary hemolytic anemia, unspecified Qualified Code(s): D58.9 - Hereditary hemolytic anemia, unspecified
--- NOTE | 2018-04-14 16:15 | P.PNONC ---
Subjective Interval history: Patient lying in bed, his mother is at the bedside. He states he feels "much better" He reports his urine is light in color. We have discussed follow-up in the outpatient setting. Patient instructed to call our office if he notices his urine is dark, so that he may be brought in for IV hydration. He was given our contact information. Objective Vital Signs/Intake & Output: Vital Signs 04/13/18 20:00 04/13/18 22:00 04/14/18 00:00 Temperature 97.8 F 97.4 F L Pulse Rate 90 94 H 82 Respiratory Rate 18 15 Blood Pressure 112/82 109/55 L Pulse Oximetry 100 99 04/14/18 02:00 04/14/18 04:00 04/14/18 08:00 Temperature 97.4 F L 97.5 F L Pulse Rate 73 78 73 Respiratory Rate 18 20 Blood Pressure 113/59 L 112/63 Pulse Oximetry 100 97 Intake & Output 04/13/18 04/14/18 04/14/18 18:59 06:59 18:59 Intake Total 70702 / 84489 1922.5 / 1922.5 2265 / 2265 Output Total 2 / 2 Balance 19332 / 68518 1922.5 / 1922.5 2265 / 2265 Weight 80.8 [place]: [place] [address] / 15490 1262.5 / 1262.5 2265 / 2265 D5W/1/2NS + KCL 20 mEq Inj 1, 1999 / 1999 1000 / 1000 2000 / 2000 000 ML @ 125 mls/hr IV.CONT . Q8H DAGO Rx#:[id number] NS Inj 1,000 ML @ 100 mls/[place] 17283 / 25584 .CONT .Q10H DAGO Rx#:[id number] Zosyn 4.5 GM Premix 4.5 gm In 100 / 100 100 ml @ 200 mls/hr IV.SIG Q6H DAGO Rx#:[id number] Vancomycin Inj 1,250 MG In NS 530 / 530 262.5 / 262.5 265 / 265 Inj 250 ML @ 250 mls/hr IV.SIG Q8H DAGO Rx#:[id number] Oral 480 / 480 660 / 660 Output: Urine Stool Other: # Voids 3 Date of Last Bowel Movement 04/13/18 # Bowel Movements 0 Result Diagrams: 04/14/18 03:17 04/14/18 03:17 Laboratory Results: Laboratory Results - last 24 hr 04/14/18 04/14/18 04/14/18 03:17 03:17 10:00 WBC 6.6 RBC 2.50 L Hgb 7.8 L Hct 22.1 L MCV 88.4 MCH 31.4 MCHC 35.5 RDW 20.3 H Plt Count 183 MPV 8.0 Neut % (Auto) 48.0 Lymph % (Auto) 42.3 [place] % (Auto) 5.9 Eos % (Auto) 3.2 Baso % (Auto) 0.6 Neut # (Auto) 3.2 Lymph # (Auto) 2.8 [place] # (Auto) 0.4 Eos # (Auto) 0.2 Baso # (Auto) 0.0 WBC Differential . Differential Comment Auto diff final Sodium 144 Potassium 3.4 L Chloride 109 H Carbon Dioxide 23.8 Anion Gap 11 BUN 7 Creatinine 0.90 Estimated GFR Greater than 89 Random Glucose 72 L Calcium 8.1 L Magnesium 2.1 Total Bilirubin 2.5 H Direct Bilirubin 0.4 H Indirect Bilirubin 2.1 H AST 238 H ALT 101 H Alkaline Phosphatase 42 L Total Creatine Kinase 4330 H CK-MB (CK-2) Less than 1.0 CK-MB (CK-2) % 0.0 Total Protein 6.5 Albumin 3.4 Vancomycin Trough 14.3 H Culture Results: Microbiology 04/11/18 21:36 Group A Streptococcus Screen/Cult - Final Throat No Beta Streptococci isolated. 04/11/18 21:15 Aerobic Blood Culture - Preliminary Blood - Peripheral No growth in 3 days Anaerobic Blood Culture - Preliminary No growth in 3 days 04/11/18 21:10 Aerobic Blood Culture - Preliminary Blood - Peripheral No growth in 3 days Anaerobic Blood Culture - Preliminary No growth in 3 days 04/11/18 21:36 Group A Streptococcus Screen (NIA) - Final Throat Medications: Active Medications Generic Name Dose Route Start Last Admin Trade Name Freq PRN Reason Stop Dose Admin Acetaminophen 650 mg 04/12/18 00:02 04/12/18 17:19 Tylenol PO 650 mg Q4H PRN Administration Temp > 100.4 Acetaminophen/Butalbital/Caffeine 1 tab 04/13/18 19:43 04/13/18 19:57 Fioricet 50-325-40 PO 1 tab Q6H PRN Administration HEADACHE Folic Acid 1 mg 04/12/18 09:00 04/14/18 08:30 Folic Acid PO 1 mg DAILY DAGO Administration Potassium Chloride/Dextrose/Sod Cl 1,000 mls @ 150 mls/hr 04/13/18 09:00 08:31 D5w/1/2ns + Kcl 20 Meq Inj IV.CONT Infused .Q6H40M DAGO Infusion Vancomycin HCl 1,250 mg/ 262.5 mls @ 250 mls/hr 04/13/18 10:00 04/14/18 10:22 Sodium Chloride IV.SIG Infused Q8H DAGO Infusion Ondansetron HCl 4 mg 04/12/18 00:02 04/13/18 01:15 Zofran Inj IV.PUSH 4 mg Q6H PRN Administration NAUSEA OR VOMITING Senna/Docusate Sodium 1 tab 04/12/18 09:00 04/14/18 08:28 Noni-Colace PO Not Given BID DAGO Objective Remarks: GENERAL: Young male patient, resting in bed. In no acute distress. HEAD: Normocephalic. EYES: No injection or drainage. NECK: Supple, trachea midline. CARDIOVASCULAR: +S1/S2 without murmurs. RESPIRATORY: Anterior breath sounds clear. Non-labored. GASTROINTESTINAL: Abdomen soft, non-tender, nondistended. EXTREMITIES: No cyanosis, or edema. MUSCULOSKELETAL: Adequate muscle tone. NEUROLOGICAL: No obvious focal deficit. Awake, alert, and oriented x3. Assessment/Plan - Plan 17-year-old male with history of admitted with hereditary spherocytosis muscle aches, sore throat and headache. He was found to have rhabdomyolysis and hemolytic anemia. He reports his baseline hemoglobin is around 11 and baseline bilirubin is around 7-9. 1. Hemoglobin increased to 7.8. His bilirubin is improving and is down to 4 today. Creatinine kinase has also decreased. 2. Outpatient follow-up discussed with the patient and his mother. The patient is aware to monitor the color of his urine and if it becomes dark and to call our office for IV hydration. 3. Patient is cleared from a hematology standpoint for discharge. He is to follow-up with hematology as an outpatient in 4-6 weeks, or sooner if needed. - Attending Statement The exam, history, and the medical decision-making described in the above note were completed with the assistance of the mid-level provider. I reviewed and agree with the findings presented. I attest that I had a [id number] encounter with the patient on the same day, and personally performed and documented my assessment and findings in the medical record. Patient is feeling much better, mother is at bedside He is anxious to go home Alena negative hemolytic anemia is improving with the hydration Bilirubin is down to 4.2 Hemoglobin is improving although slowly. His hemoglobin today 7.8 Patient does not need any blood transfusion at this time He has been advised to continue the folic acid Patient is still has rhabdomyolysis and it is improving. From hematological standpoint patient can be discharged. However he still has rhabdomyolysis and I will leave it up to the discretion of the admitting physician regarding discharge. We discuss outpatient follow-up. Our clinic information was provided. Patient needs to make appointment in 4-6 weeks He has been advised to watch his urine color and if this get darker then he knows that he is having increase hemolysis which could be managed in our office with IV hydration
[2018-04-14 21:27] VITALS: RESP 18
[2018-04-15] MEDS: KCL 20 mEq/D5W/NaCl 0.45% Inj 1,000 ML IV.CONT SCH ×3 (03:30→06:48)
[2018-04-15] MEDS: Vancomycin Inj 1,250 MG in Sodium Chlor 0.9% Inj 250 ML IV.SIG SCH (04:16)
[2018-04-15 05:45] LABS: Baso # (Auto) 0.1 th/mm3 (0.0-0.2); Baso % (Auto) 0.8 % (0.0-2.0); Eos # (Auto) 0.3 th/mm3 (0.0-0.4); Eos % (Auto) 3.8 % (0.0-4.0); Hematocrit 24.8 % (39.0-51.0); Lymph # (Auto) 2.5 th/mm3 (1.0-4.8); Lymph % (Auto) 35.6 % (9.0-44.0); Mean Corpuscular Hemoglobin 31.6 pg (27.0-34.0); Mean Corpuscular Volume 87.3 fL (80.0-100.0); Mean Platelet Volume 7.7 fL (7.0-11.0); Mono # (Auto) 0.5 th/mm3 (0.0-0.9); Mono % (Auto) 7.5 % (0.0-8.0); Neut # (Auto) 3.7 th/mm3 (1.8-7.7); Neut % (Auto) 52.3 % (16.0-70.0); Platelet Count 217 th/mm3 (150-450); Red Blood Count 2.84 mil/mm3 (4.50-5.90); White Blood Count 7.1 th/mm3 (4.0-11.0)
[2018-04-15 05:48] LABS: Mean Corpuscular HGB Conc 36.2 % (32.0-36.0)
[2018-04-15 06:15] LABS: Alanine Aminotransferase 93 U/L (9-52); Albumin 3.6 g/dL (3.4-5.0); Anion Gap 9 meq/L (5-15); Aspartate Aminotransferase 136 U/L (15-39); Blood Urea Nitrogen 6 mg/dL (7-18); Calcium 8.4 mg/dL (8.5-10.1); Carbon Dioxide 24.6 meq/L (21.0-32.0); Chloride 109 meq/L (98-107); Glomerular Filtration Rate Greater Than 89 mL/min (>89); Glucose,Random 76 mg/dL (74-106); Magnesium 2.2 mg/dL (1.5-2.5); Potassium 3.7 meq/L (3.5-5.1); Sodium 143 meq/L (136-145)
[2018-04-15 06:29] LABS: Alkaline Phosphatase 44 U/L (45-117); Creatine Kinase 1591 U/L (39-308); Total Protein 6.8 g/dL (6.4-8.2)
[2018-04-15 06:45] LABS: CKMB Percent 0.1 % (0.0-4.0)
[2018-04-15] MEDS: Senna/Docusate Sodium 8.6/50 MG Tablet PO SCH (08:05)
[2018-04-15] MEDS: Folic Acid 1 MG Tablet PO SCH (08:05)
[2018-04-15 08:44] LABS: Eosinophils 7 % (0-4); Lymphocytes 34 % (9-44); Monocytes 8 % (0-8); Tallied Nucleated RBC 1 (0-0)
[2018-04-15 08:46] LABS: Platelet Estimate Normal (Normal); Platelet Morphology Normal (Normal); Polychromasia 5.1 % (0.0-1.9)
[2018-04-15 08:48] LABS: Spherocytes 1+
--- NOTE | 2018-04-15 09:02 | P.DS ---
Date of admission: 04/12/18 00:01 Primary care physician: No Primary Care Physician Anticipated date of discharge: 04/15/18 Brief History from admission: This is a 17-year-old male with a PMH of Hereditary Spherocytosis who presented to the ER w/ myalgias, sore throat and headache x1 day. Notes subjective fever/ chills. Has been taking OTC medications w/ minimal relief. On arrival, BP 121/ 55, HR 115, O2 sat 98% on RA, Temp 101.3. WBC 21. INR 1.2. Creatinine 1.44. CPK 7593. Hemoglobin 9.3, reports baseline hemoglobin 11-12. U/a negative. Hodgeman negative. CXR no acute findings. S/p Vanc/Zosyn in ER. DS: Diagnosis - Discharge Diagnosis (1) Hereditary spherocytosis Status: Acute (2) KAREN (acute kidney injury) Status: Acute (3) Sepsis Status: Acute (4) Rhabdomyolysis Status: Acute (5) Anemia Status: Acute DS: Summary Hospital Course: This is a 17-year-old male with a PMH of hereditary spherocytosis who presented to the ER w/ myalgias, sore throat and headache x 1 day. Notes subjective fever /chills. Has been taking OTC medications w/ minimal relief. He worked out at the gym for five days straight prior to admission. On arrival, BP 121/55, HR 115, O2 sat 98% on RA, Temp 101.3. WBC 21. INR 1.2. Creatinine 1.44. CPK 7593. U/a negative. Strep negative. Hodgeman negative. CXR no acute findings. Vancomycin and Zosyn were discontinued as the pt remained afebrile. The pt received IVFs with potassium for his rhabdomyolysis and hypokalemia. His renal insufficiency improved with fluids. Hematology was consulted. He did not require a transfusion and his hemoglobin increased over the course of his hospital stay. He will follow up with hematology as an outpt. He will repeat a CBC, CMP and CPK in 5 days. A neonatal nurse practitioner consult was requested by his mother for concerns of poor nutrition as the pt is on a keto/ juice diet. - Time Spent with Patient Total time spent providing and/or coordinating discharge services: Less than 30 minutes - Quality: VTE Deep Vein Thrombosis/Pulmonary Embolism Present on Admission: No Exam Vital signs: Vital Signs 04/14/18 12:00 04/14/18 16:00 04/14/18 20:00 Temperature 97.8 F 97.9 F 97.5 F L Pulse Rate 80 74 79 Respiratory Rate 20 20 18 Blood Pressure 109/57 L 136/62 126/59 L Pulse Oximetry 99 100 99 04/15/18 00:00 04/15/18 04:00 Temperature 97.2 F L 97.4 F L Pulse Rate 70 67 Respiratory Rate 18 18 Blood Pressure 129/60 126/58 L Pulse Oximetry 98 99 Intake & Output 04/14/18 04/15/18 04/15/18 18:59 06:59 18:59 Intake Total 2505 / 2505 527.5 / 527.5 Balance 2505 / 2505 527.5 / 527.5 Intake: IV 2265 / 2265 527.5 / 527.5 D5W/1/2NS + KCL 20 mEq Inj 1, 2000 / 2000 000 ML @ 125 mls/hr IV.CONT . Q8H DAGO Rx#:[id number] Vancomycin Inj 1,250 MG In NS 265 / 265 527.5 / 527.5 Inj 250 ML @ 250 mls/hr IV.SIG Q8H DAGO Rx#:[id number] Oral 240 / 240 Other: # Voids 5 # Bowel Movements 0 Narrative: GENERAL: Well-nourished, well-developed young male, in no apparent distress. SKIN: Warm and dry. HEAD: Atraumatic. Normocephalic. EYES: Pupils equal and round. No scleral icterus. No injection or drainage. ENT: No nasal bleeding or discharge. Mucous membranes pink and moist. NECK: Trachea midline. No JVD. CARDIOVASCULAR: Regular rate and rhythm. RESPIRATORY: No accessory muscle use. Clear to auscultation. Breath sounds equal bilaterally. GASTROINTESTINAL: Abdomen soft, non-tender, nondistended. Hepatic and splenic margins not palpable. MUSCULOSKELETAL: Extremities without clubbing, cyanosis, or edema. No obvious deformities. NEUROLOGICAL: Awake and alert. No obvious cranial nerve deficits. Motor grossly within normal limits. Five out of 5 muscle strength in the arms and legs. Normal speech. PSYCHIATRIC: Appropriate mood and affect; insight and judgment normal. Results Procedures completed during hospitalization: None Labs on day of discharge: Labs from last 24 hours 04/15/18 04/15/18 04/14/18 04:48 04:48 10:00 WBC 7.1 RBC 2.84 L Hgb 9.0 L Hct 24.8 L MCV 87.3 MCH 31.6 MCHC 36.2 H RDW 20.0 H Plt Count 217 MPV 7.7 Prelim Diff (Auto) Slide review pending Neut % (Auto) 52.3 Lymph % (Auto) 35.6 [place] % (Auto) 7.5 Eos % (Auto) 3.8 Baso % (Auto) 0.8 Neut # (Auto) 3.7 Lymph # (Auto) 2.5 [place] # (Auto) 0.5 Eos # (Auto) 0.3 Baso # (Auto) 0.1 WBC Differential Manual diff final Seg Neuts % (Manual) 48 Band Neuts % (Manual) 2 Lymphocytes % (Manual) 34 Monocytes % (Manual) 8 Eosinophils % (Manual) 7 H Basophils % (Manual) 1 Abs Neuts (Manual) 3.6 Nucleated RBCs/100 WBC 1 H Differential Comment . Platelet Estimate Normal Platelet Morphology Normal Polychromasia 5.1 H Spherocytes 1+ H Sodium 143 Potassium 3.7 Chloride 109 H Carbon Dioxide 24.6 Anion Gap 9 BUN 6 L Creatinine 0.82 Estimated GFR Greater than 89 Random Glucose 76 Calcium 8.4 L Magnesium 2.2 Total Bilirubin 2.5 H Direct Bilirubin 0.4 H Indirect Bilirubin 2.1 H AST 136 H ALT 93 H Alkaline Phosphatase 44 L Total Creatine Kinase 1591 H CK-MB (CK-2) Less than 1.0 CK-MB (CK-2) % 0.1 Total Protein 6.8 Albumin 3.6 Vancomycin Trough 14.3 H Preliminary micro results at discharge 04/11/18 21:15 Aerobic Blood Culture - Preliminary Blood - Peripheral No growth in 3 days Anaerobic Blood Culture - Preliminary No growth in 3 days 04/11/18 21:10 Aerobic Blood Culture - Preliminary Blood - Peripheral No growth in 3 days Anaerobic Blood Culture - Preliminary No growth in 3 days - Impressions ITS Impressions Chest X-Ray 04/11/18 21:08 CONCLUSION: No evidence of acute cardiopulmonary process. Discharge Plan - Discharge Disposition Patient Disposition: 01 Discharge Home - Discharge Condition Condition: Good - Discharge Order Discharge Orders: Discharge Order (Routine); Ordered 04/15/18 Ordered By: John Saldana - Discharge Details Anticipated Discharge Date: 04/15/18 - Physicians Team Primary Care Provider: Primary Care Physici,No Attending Provider: John Saldana Other Providers: Tony Reyes MD
--- NOTE | 2018-04-15 10:57 | P.PNONC ---
Subjective Interval history: Afebrile Patient sitting up on side of bed with bags packed. Reports he is feeling better Anxious to go home Objective Vital Signs/Intake & Output: Vital Signs 04/14/18 12:00 04/14/18 16:00 04/14/18 20:00 Temperature 97.8 F 97.9 F 97.5 F L Pulse Rate 80 74 79 Respiratory Rate 20 20 18 Blood Pressure 109/57 L 136/62 126/59 L Pulse Oximetry 99 100 99 04/15/18 00:00 04/15/18 04:00 04/15/18 08:00 Temperature 97.2 F L 97.4 F L 97.9 F Pulse Rate 70 67 77 Respiratory Rate 18 18 18 Blood Pressure 129/60 126/58 L 127/58 L Pulse Oximetry 98 99 99 Intake & Output 04/14/18 04/15/18 04/15/18 18:59 06:59 18:59 Intake Total 2505 / 2505 527.5 / 527.5 Balance 2505 / 2505 527.5 / 527.5 Intake: IV 2265 / 2265 527.5 / 527.5 D5W/1/2NS + KCL 20 mEq Inj 1, 2000 / 2000 000 ML @ 125 mls/hr IV.CONT . Q8H DAGO Rx#:[id number] Vancomycin Inj 1,250 MG In NS 265 / 265 527.5 / 527.5 Inj 250 ML @ 250 mls/hr IV.SIG Q8H DAGO Rx#:[id number] Oral 240 / 240 Other: # Voids 5 # Bowel Movements 0 Result Diagrams: 04/15/18 04:48 04/15/18 04:48 Laboratory Results: Laboratory Results - last 24 hr 04/14/18 04/15/18 04/15/18 10:00 04:48 04:48 WBC 7.1 RBC 2.84 L Hgb 9.0 L Hct 24.8 L MCV 87.3 MCH 31.6 MCHC 36.2 H RDW 20.0 H Plt Count 217 MPV 7.7 Prelim Diff (Auto) Slide review pending Neut % (Auto) 52.3 Lymph % (Auto) 35.6 [place] % (Auto) 7.5 Eos % (Auto) 3.8 Baso % (Auto) 0.8 Neut # (Auto) 3.7 Lymph # (Auto) 2.5 [place] # (Auto) 0.5 Eos # (Auto) 0.3 Baso # (Auto) 0.1 WBC Differential Manual diff final Seg Neuts % (Manual) 48 Band Neuts % (Manual) 2 Lymphocytes % (Manual) 34 Monocytes % (Manual) 8 Eosinophils % (Manual) 7 H Basophils % (Manual) 1 Abs Neuts (Manual) 3.6 Nucleated RBCs/100 WBC 1 H Differential Comment . Platelet Estimate Normal Platelet Morphology Normal Polychromasia 5.1 H Spherocytes 1+ H Sodium 143 Potassium 3.7 Chloride 109 H Carbon Dioxide 24.6 Anion Gap 9 BUN 6 L Creatinine 0.82 Estimated GFR Greater than 89 Random Glucose 76 Calcium 8.4 L Magnesium 2.2 Total Bilirubin 2.5 H Direct Bilirubin 0.4 H Indirect Bilirubin 2.1 H AST 136 H ALT 93 H Alkaline Phosphatase 44 L Total Creatine Kinase 1591 H CK-MB (CK-2) Less than 1.0 CK-MB (CK-2) % 0.1 Total Protein 6.8 Albumin 3.6 Vancomycin Trough 14.3 H Culture Results: Microbiology 04/11/18 21:36 Group A Streptococcus Screen/Cult - Final Throat No Beta Streptococci isolated. 04/11/18 21:15 Aerobic Blood Culture - Preliminary Blood - Peripheral No growth in 3 days Anaerobic Blood Culture - Preliminary No growth in 3 days 04/11/18 21:10 Aerobic Blood Culture - Preliminary Blood - Peripheral No growth in 3 days Anaerobic Blood Culture - Preliminary No growth in 3 days Medications: Active Medications Generic Name Dose Route Start Last Admin Trade Name Freq PRN Reason Stop Dose Admin Acetaminophen 650 mg 04/12/18 00:02 04/12/18 17:19 Tylenol PO 650 mg Q4H PRN Administration Temp > 100.4 Acetaminophen/Butalbital/Caffeine 1 tab 04/13/18 19:43 04/13/18 19:57 Fioricet 50-325-40 PO 1 tab Q6H PRN Administration HEADACHE Folic Acid 1 mg 04/12/18 09:00 04/15/18 08:05 Folic Acid PO 1 mg DAILY DAGO Administration Potassium Chloride/Dextrose/Sod Cl 1,000 mls @ 150 mls/hr 04/13/18 09:00 06:48 D5w/1/2ns + Kcl 20 Meq Inj IV.CONT Not Given .Q6H40M DAGO Ondansetron HCl 4 mg 04/12/18 00:02 04/13/18 01:15 Zofran Inj IV.PUSH 4 mg Q6H PRN Administration NAUSEA OR VOMITING Senna/Docusate Sodium 1 tab 04/12/18 09:00 04/15/18 08:05 Noni-Colace PO Not Given BID [facility] Objective Remarks: GENERAL: Young male resting in bed in no obvious distress HEAD: Normocephalic. EYES: No injection or drainage. NECK: Supple, trachea midline. CARDIOVASCULAR: Regular rate and rhythm without murmurs. RESPIRATORY: Clear anteriorly. Breathing unlabored at rest. GASTROINTESTINAL: Abdomen soft, non-tender, nondistended. EXTREMITIES: No cyanosis, or edema. MUSCULOSKELETAL: Adequate muscle tone. NEUROLOGICAL: No obvious focal deficit. Awake, alert, and oriented x3. Assessment/Plan - Plan 17-year-old male with history of admitted with hereditary spherocytosis muscle aches, sore throat and headache. He was found to have rhabdomyolysis and hemolytic anemia. He reports his baseline hemoglobin is around 11 and baseline bilirubin is around 7-9. 1. Hemoglobin much improved today to 9.0. Creatinine kinase is also much improved. 2. Clear for discharge from oncology standpoint. I have contacted our new patient referrals and the patient will follow up with Dr. Reyes in approximately 3 weeks. - Attending Statement The exam, history, and the medical decision-making described in the above note were completed with the assistance of the mid-level provider. I reviewed and agree with the findings presented. I attest that I had a [id number] encounter with the patient on the same day, and personally performed and documented my assessment and findings in the medical record. anxious to go home. Feels better Hg improving and now 9.0 Bili is high at 4 but has improved. CPK is also coming down. Ok to d/c FU as outpt sign off. available prn.
--- NOTE | 2018-04-15 12:08 | P.DIET ---
Nutritional Evaluation Type of nutrition evaluation: initial Nutrition consult regarding: Diet Evaluation ([facility] [place], Pt is on keto diet and has been losing wt/hypoglycemic) Subjective Subjective Comments: Pt seen in his room w/ his mother present. Explained that he used to weigh approximately 97kg and continuously lost weight until recently on the ketogenic diet. Mother very involved in pt's "diet" stating he never eats fruits and only eats high fat foods, vegetables, and very few carbs. Pt states he was working out most days of the week, but the doctor told him every other day now. He says he typically lifts weights when he works out. Mother stated that he only eats two meals a day b/c he doesn't like breakfast. Pt then agreed w/ his mother and says he likes eating only two meals daily. Assessment Assessment: I provided information to the mother and pt regarding the pros/cons to following a ketogenic diet. I explained to the pt that I did not think it was appropriate for the current lifestyle he is trying to initiate/maintain. Mother was upset by this (it seems like this diet was mom's idea). She continued bringing up books/articles she has read that recommend dramatic food changes, like cutting out all grains or fruit completely. I continued to provide education based on these topics. I provided pt w/ a calorie range appropriate for his current lifestyle and goal of losing weight. I also provided pt w/ the appropriate amounts of CHO, PRO, and FAT that he should be consuming within this calorie range. Pt was encouraged to meet w/ the dietitian at [facility]. If he is unable to do this, I encouraged and provided pt w/ information regarding the wellness center through [facility]. He said that he was very interested in following up with an outpatient dietitian so they could monitor his PO intake and wt loss progress. Resources provided for pt including fitness center phone # and outpatient registered dietitian names. All questions and concerned were answered. Consult RD if needed.
[2018-04-15 13:52] VITALS: BP 108/56; PULSE 81; TEMP 97.5; O2SAT 97
== END 2018-04-15 14:25 | disposition home or self-care (01) ==
LOC: NEPE 19:59 → NEDA 04-12 00:01 → N04 04-12 01:17
PROVIDERS: ADMIT Hospitalist; ATTEND Hospitalist